=== PATIENT | female | born 1955 | race Caucasian/White ===

== ENCOUNTER 2021-02-23 05:06 | Observation (INO) | payer BC ==
[2021-02-23] MEDS ORDERED: SODIUM CHLORIDE 0.9% 1000 ML INFUS.BAG IV ONE (05:39)
[2021-02-23] MEDS ORDERED: ACETAMINOPHEN 1000 MG/100 ML VIAL IVPB ONE (05:39)
[2021-02-23] MEDS ORDERED: FAMOTIDINE 20 MG/50 ML IVPB 20 MG/50 ML MG IVPB ONE ×2 (05:39→05:48)
[2021-02-23] MEDS ORDERED: ONDANSETRON 4 MG/2 ML VIAL IVPUSH ONE (05:39)
[2021-02-23] MEDS ORDERED: ACETAMINOPHEN INJECTION 100 ML IVPB ONE ×2 (05:48→12:06)
[2021-02-23] MEDS ORDERED: ONDANSETRON 4 MG/2 ML VIAL ONE (05:48)
[2021-02-23 06:27] LABS: BASO % 0.4 % (0-2.0); EOS % 3.3 % (0-4.5); HEMATOCRIT 28.4 % (32.4-45.2); HEMOGLOBIN 9.2 GM/dL (10.7-15.3); LYMPH % 16.8 % (8-40); MCH 22.2 pg (25.7-33.7); MCHC 32.3 g/dl (32.0-36.0); MEAN CELL VOLUME 68.6 fl (80-96); MEAN PLT VOLUME 7.6 fl (7.5-11.1); MONO % 6.1 % (3.8-10.2); NEUT % 73.4 % (42.8-82.8); PLATELET COUNT 387 10^3/uL (134-434); RBC 4.13 M/mm3 (3.60-5.2); RDW 16.9 % (11.6-15.6); WHITE BLOOD COUNT 5.6 K/mm3 (4.0-10.0)
[2021-02-23 06:42] LABS: INR 0.97 (0.83-1.09); PROTHROMBIN TIME (PATIENT) 11.4 SEC (9.7-13.0)
[2021-02-23 06:47] LABS: CHLORIDE 91 mmol/L (98-107); SODIUM 127 mmol/L (136-145)
[2021-02-23 06:49] LABS: CALCIUM 8.8 mg/dL (8.5-10.1)
[2021-02-23 06:50] LABS: ALBUMIN 3.5 g/dl (3.4-5.0); ANION GAP 8 MMOL/L (8-16); BLOOD UREA NITROGEN 9.1 mg/dL (7-18); CO2 27 mmol/L (21-32); GLUCOSE,RANDOM 96 mg/dL (74-106); LIPASE 80 U/L (73-393)
[2021-02-23 06:52] LABS: SGOT/AST 30 U/L (15-37); SGPT/ALT 30 U/L (13-61)
[2021-02-23 06:53] LABS: CREATININE 0.6 mg/dL (0.55-1.3)
[2021-02-23 06:54] LABS: BILIRUBIN,TOTAL 0.3 mg/dL (0.2-1); TOT PROT 7.1 g/dl (6.4-8.2)
[2021-02-23 06:55] LABS: ALK PHOS 114 U/L (45-117)
[2021-02-23] MEDS ORDERED: LACTATED RINGERS SOLUTION 1000 ML INFUS.BAG IV ONE ×2 (07:00→09:33)
[2021-02-23] MEDS ORDERED: morphine CARPU-JECT 4 MG/1 ML DISP.SYRIN IVPUSH ONE (08:24)
[2021-02-23 08:27] LABS: EPI CELLS 5 /uL (0-25.1); HYALINE CASTS 0 /uL (0-3.1); PH,URINE 7.5 (5.0-8.0); URINE APPEARANCE CLEAR; URINE BACTERIA 6303 /uL (0-1359); URINE BILIRUBIN NEGATIVE (NEGATIVE); URINE COLOR YELLOW; URINE GLUCOSE (UA) NEGATIVE (NEGATIVE); URINE KETONE NEGATIVE (NEGATIVE); URINE LEUK ESTERASE TRACE (NEGATIVE); URINE NITRITE NEGATIVE (NEGATIVE); URINE PROTEIN NEGATIVE (NEGATIVE); URINE RBC 1 /uL (0-23.9); URINE WBC 21 /uL (0-25.8)
[2021-02-23] MEDS ORDERED: morphine SULFATE 4 MG/ML VIAL ONE (08:27)
[2021-02-23] MEDS ORDERED: ENOXAPARIN NA (PORCINE) 40 MG/0.4 ML DISP.SYRIN SQ ONE (10:33)
[2021-02-23] MEDS: LACTATED RINGERS SOLUTION 1,000 ML IV SCH ×2 (10:34→23:57)
[2021-02-23] MEDS: ENOXAPARIN NA (PORCINE) 40 MG/0.4 ML DISP.SYRIN SQ SCH (10:34)
[2021-02-23] MEDS: ACETAMINOPHEN 1000 MG/100 ML VIAL IVPB PRN ×2 (12:15→22:11)
[2021-02-23 13:04] VITALS: BMI 33.4
[2021-02-23] MEDS ORDERED: LORazepam 2 MG/ML SDV VIAL IVPUSH ONE (18:23)
[2021-02-23] MEDS ORDERED: traMADol HCL 50 MG TABLET PO ONE (18:37)
[2021-02-23] MEDS ORDERED: ZOLPIDEM TARTRATE 5 MG TABLET PO PRN (18:41)
[2021-02-23] MEDS: LORazepam 0.5 MG TABLET PO ONE ×2 (18:56→20:55)
[2021-02-23] MEDS ORDERED: ACETAMINOPHEN 500 MG TABLET (FP) PO ONE (23:42)
[2021-02-24] MEDS ORDERED: MELATONIN 5 MG TABLETS PO ONE (00:42)
[2021-02-24] MEDS: ACETAMINOPHEN 1000 MG/100 ML VIAL IVPB PRN (06:34)
[2021-02-24 08:53] LABS: BASO % 1.2 % (0-2.0); EOS % 5.8 % (0-4.5); HEMATOCRIT 26.4 % (32.4-45.2); HEMOGLOBIN 8.6 GM/dL (10.7-15.3); LYMPH % 39.1 % (8-40); MCH 22.6 pg (25.7-33.7); MCHC 32.5 g/dl (32.0-36.0); MEAN CELL VOLUME 69.5 fl (80-96); MEAN PLT VOLUME 7.8 fl (7.5-11.1); MONO % 8.2 % (3.8-10.2); NEUT % 45.7 % (42.8-82.8); PLATELET COUNT 397 10^3/uL (134-434); RDW 16.6 % (11.6-15.6); WHITE BLOOD COUNT 3.6 K/mm3 (4.0-10.0)
[2021-02-24 09:29] LABS: CALCIUM 8.9 mg/dL (8.5-10.1)
[2021-02-24 09:30] LABS: ALBUMIN 3.1 g/dl (3.4-5.0); BLOOD UREA NITROGEN 5.1 mg/dL (7-18); MAGNESIUM 1.8 mg/dL (1.8-2.4)
[2021-02-24 09:32] LABS: CREATININE 0.6 mg/dL (0.55-1.3)
[2021-02-24 09:33] LABS: PHOSPHOROUS 4.4 mg/dL (2.5-4.9)
[2021-02-24 09:34] LABS: BILIRUBIN,TOTAL 0.4 mg/dL (0.2-1); TOT PROT 6.4 g/dl (6.4-8.2)
[2021-02-24] MEDS: LACTATED RINGERS SOLUTION 1,000 ML IV SCH (12:18)
[2021-02-24] MEDS: ENOXAPARIN NA (PORCINE) 40 MG/0.4 ML DISP.SYRIN SQ SCH (12:18)
[2021-02-24] MEDS ORDERED: ACETAMINOPHEN 325 MG TABLET (FP) PO PRN (12:21)
[2021-02-24] MEDS ORDERED: PREGABALIN 75 MG CAPSULE PO SCH (15:01)
[2021-02-24 15:09] VITALS: TEMP 97.8
[2021-02-24] MEDS ORDERED: LOSARTAN POTASSIUM 50 MG TABLET PO SCH (18:00)
[2021-02-24 18:36] VITALS: BP 168/94; PULSE 73
== END 2021-02-24 19:29 | disposition home or self-care (01) ==
LOC: JER 05:06 → JERBED 08:59 → UNDOADMOB 08:59 → INTOOBSV 08:59 → J8W 12:40 → JERBED 12:40 → J8W 02-24 13:58
PROVIDERS: ADMIT Internal Medicine; ATTEND Nurse Practitioner Family
PROC: 3E033NZ Introduction of Analgesics, Hypnotics, Sedatives into Peripheral Vein, Percutaneous Approach (ICD-10-PCS; principal; 2021-02-24)
PROC: 3E023GC Introduction of Other Therapeutic Substance into Muscle, Percutaneous Approach (ICD-10-PCS; 2021-02-24)
PROC: 3E033GC Introduction of Other Therapeutic Substance into Peripheral Vein, Percutaneous Approach (ICD-10-PCS; 2021-02-24)
PROC: 3E0337Z Introduction of Electrolytic and Water Balance Substance into Peripheral Vein, Percutaneous Approach (ICD-10-PCS; 2021-02-24)
PROC: 3E033NZ Introduction of Analgesics, Hypnotics, Sedatives into Peripheral Vein, Percutaneous Approach (ICD-10-PCS; 2021-02-24)
DX: K56.609 Unspecified intestinal obstruction, unspecified as to partial versus complete obstruction (principal); E87.1 Hypo-osmolality and hyponatremia; I10 Essential (primary) hypertension; E66.9 Obesity, unspecified; Z68.33 Body mass index [BMI] 33.0-33.9, adult; Z88.8 Allergy status to other drugs, medicaments and biological substances; D69.49 Other primary thrombocytopenia; K56.600 Partial intestinal obstruction, unspecified as to cause; F41.9 Anxiety disorder, unspecified; Z98.84 Bariatric surgery status; Z90.49 Acquired absence of other specified parts of digestive tract; D64.9 Anemia, unspecified
CPT/HCPCS: 36415; 71045-TC-FY; 74177-TC; 80053; 81003; 82436; 83690; 83735; 83930; 83935; 84100; 84133; 84300; 84484; 85025; 85610; 85730; 86850; 86900; 86901; 87086; 87186; 93005; 93010; 99285-25; C9803; G0378; J0131; U0003; U0005

== ENCOUNTER 2021-03-30 11:09 | Emergency (ER) | payer BC ==
[2021-03-30 11:34] VITALS: BMI 32.4
[2021-03-30 12:28] VITALS: BP 148/78; PULSE 84; TEMP 97
[2021-03-30] MEDS ORDERED: ACETAMINOPHEN 500 MG TABLET (FP) PO ONE (13:06)
[2021-03-30] MEDS ORDERED: ACETAMINOPHEN 500 MG TABLET (FP) ONE (13:13)
[2021-03-30] MEDS ORDERED: LORazepam 0.5 MG TABLET PO ONE (13:21)
[2021-03-30] MEDS ORDERED: LORazepam 0.5 MG TABLET ONE (13:40)
== END 2021-03-30 14:49 | disposition home or self-care (01) ==
LOC: JER 11:09
DX: M54.50 Low back pain, unspecified (principal); F41.9 Anxiety disorder, unspecified
CPT/HCPCS: 99283-25

== ENCOUNTER 2021-04-14 22:58 | Inpatient (IN) | payer BC ==
[2021-04-15] MEDS ORDERED: diazePAM CARPU-JECT 10 MG/2 ML DISP.SYRIN IVPUSH ONE ×2 (00:05→01:38)
[2021-04-15] MEDS ORDERED: diazePAM CARPU-JECT 10 MG/2 ML DISP.SYRIN ONE (00:27)
[2021-04-15 01:07] LABS: BASO % 0.3 % (0-2.0); EOS % 0.7 % (0-4.5); HEMATOCRIT 27.5 % (32.4-45.2); HEMOGLOBIN 8.7 GM/dL (10.7-15.3); LYMPH % 11.1 % (8-40); MCH 21.1 pg (25.7-33.7); MCHC 31.8 g/dl (32.0-36.0); MEAN CELL VOLUME 66.4 fl (80-96); MEAN PLT VOLUME 7.5 fl (7.5-11.1); MONO % 9.5 % (3.8-10.2); NEUT % 78.4 % (42.8-82.8); PLATELET COUNT 351 10^3/uL (134-434); RBC 4.14 M/mm3 (3.60-5.2); RDW 17.7 % (11.6-15.6); WHITE BLOOD COUNT 4.4 K/mm3 (4.0-10.0)
[2021-04-15 01:24] LABS: CHLORIDE 101 mmol/L (98-107); SODIUM 138 mmol/L (136-145)
[2021-04-15 01:27] LABS: ALBUMIN 3.6 g/dl (3.4-5.0); ANION GAP 6 MMOL/L (8-16); CO2 30 mmol/L (21-32); GLUCOSE,RANDOM 94 mg/dL (74-106)
[2021-04-15 01:30] LABS: CREATININE 0.6 mg/dL (0.55-1.3); SGOT/AST 42 U/L (15-37); SGPT/ALT 32 U/L (13-61)
[2021-04-15 01:32] LABS: BILIRUBIN,TOTAL 0.3 mg/dL (0.2-1)
[2021-04-15 01:33] LABS: ALK PHOS 116 U/L (45-117)
[2021-04-15 02:12] LABS: METHADONE, UR NEGATIVE (NEGATIVE); OPIATES, URI NEGATIVE (NEGATIVE); PHENCYCLIDINE,URINE NEGATIVE (NEGATIVE); URINE BARBITURATES NEGATIVE (NEGATIVE)
[2021-04-15 02:13] LABS: URINE AMPHETAMINES NEGATIVE (NEGATIVE)
[2021-04-15 02:22] LABS: COCAINE, UR NEGATIVE (NEGATIVE); URINE BENZODIAZEPINES POSITIVE (NEGATIVE)
[2021-04-15 03:24] LABS: ANISOCYTOSIS 3+; MACROCYTOSIS 0; OVALOCYTE 1+; PLATELET ESTIMATE NORMAL; TEAR DROP CELLS 1+
[2021-04-15] MEDS ORDERED: HALOPERIDOL LACTATE 5 MG/ML IM ONE (03:25)
[2021-04-15] MEDS ORDERED: LORazepam 2 MG/ML SDV VIAL ONE (03:38)
[2021-04-15] MEDS ORDERED: LORazepam 2 MG/ML SDV VIAL IM ONE (03:38)
[2021-04-15] MEDS ORDERED: HALOPERIDOL LACTATE 5 MG/ML ONE (03:38)
[2021-04-15] MEDS: LORazepam 2 MG/ML SDV VIAL IVPUSH ONE ×2 (03:45)
[2021-04-15] MEDS ORDERED: ACETAMINOPHEN 1000 MG/100 ML VIAL IVPB ONE (04:21)
[2021-04-15] MEDS ORDERED: MIDAZOLAM HCL 2 MG/2 ML SINGLE DOSE VIAL IVPUSH ONE (04:23)
[2021-04-15 07:28] LABS: EPI CELLS 6 /uL (0-25.1); HYALINE CASTS 1 /uL (0-3.1); PH,URINE 6.5 (5.0-8.0); URINE APPEARANCE CLEAR; URINE BACTERIA >9,000 /uL (0-1359); URINE BILIRUBIN NEGATIVE (NEGATIVE); URINE COLOR YELLOW; URINE GLUCOSE (UA) NEGATIVE (NEGATIVE); URINE KETONE 2+ (NEGATIVE); URINE LEUK ESTERASE TRACE (NEGATIVE); URINE NITRITE POSITIVE (NEGATIVE); URINE PROTEIN NEGATIVE (NEGATIVE); URINE RBC 27 /uL (0-23.9); URINE WBC 12 /uL (0-25.8)
[2021-04-15 07:31] LABS: IRON SERUM 21 ug/dL (50-175); TOTAL IRON BINDING CAPACITY 426 ug/dL (250-450)
[2021-04-15 08:38] LABS: URINE CRYSTALS NON SEEN /hpf
[2021-04-15] MEDS: ENOXAPARIN NA (PORCINE) 40 MG/0.4 ML DISP.SYRIN SQ SCH (09:33)
[2021-04-15 09:59] LABS: BASO % 0.6 % (0-2.0); EOS % 1.1 % (0-4.5); HEMOGLOBIN 8.7 GM/dL (10.7-15.3); LYMPH % 19.9 % (8-40); MCH 21.3 pg (25.7-33.7); MCHC 32.1 g/dl (32.0-36.0); MEAN CELL VOLUME 66.4 fl (80-96); MEAN PLT VOLUME 7.8 fl (7.5-11.1); MONO % 10.3 % (3.8-10.2); NEUT % 68.1 % (42.8-82.8); PLATELET COUNT 318 10^3/uL (134-434); RBC 4.06 M/mm3 (3.60-5.2)
[2021-04-15 10:08] LABS: INR 1.19 (0.83-1.09); PROTHROMBIN TIME (PATIENT) 13.3 SEC (9.7-13.0)
[2021-04-15 10:22] LABS: BLOOD UREA NITROGEN 4.9 mg/dL (7-18)
[2021-04-15 10:23] LABS: CALCIUM 8.5 mg/dL (8.5-10.1); MAGNESIUM 2.2 mg/dL (1.8-2.4)
[2021-04-15 10:25] LABS: CREATININE 0.6 mg/dL (0.55-1.3)
[2021-04-15] MEDS: ACETAMINOPHEN 1000 MG/100 ML VIAL IVPB PRN (11:21)
[2021-04-15] MEDS ORDERED: traMADol HCL 50 MG TABLET PO ONE ×2 (12:16→19:06)
[2021-04-15 16:31] VITALS: BMI 32.1
[2021-04-15] MEDS: traZODone HCL 50 MG TABLET (FP) PO SCH (21:04)
[2021-04-16] MEDS: ACETAMINOPHEN 1000 MG/100 ML VIAL IVPB PRN (01:01)
[2021-04-16] MEDS: FERROUS SO4 325 MG TABLET (FP) PO SCH (08:57)
[2021-04-16 09:03] LABS: BASO % 0.3 % (0-2.0); EOS % 0.5 % (0-4.5); HEMATOCRIT 27.8 % (32.4-45.2); LYMPH % 29.2 % (8-40); MCH 21.6 pg (25.7-33.7); MCHC 32.2 g/dl (32.0-36.0); MEAN PLT VOLUME 8.2 fl (7.5-11.1); MONO % 10.6 % (3.8-10.2); NEUT % 59.4 % (42.8-82.8); PLATELET COUNT 322 10^3/uL (134-434); RBC 4.15 M/mm3 (3.60-5.2); RDW 18.1 % (11.6-15.6); WHITE BLOOD COUNT 3.6 K/mm3 (4.0-10.0)
[2021-04-16 09:15] LABS: CALCIUM 8.3 mg/dL (8.5-10.1)
[2021-04-16 09:16] LABS: ALBUMIN 3.1 g/dl (3.4-5.0); BLOOD UREA NITROGEN 7.1 mg/dL (7-18); MAGNESIUM 2.3 mg/dL (1.8-2.4)
[2021-04-16 09:19] LABS: CREATININE 0.5 mg/dL (0.55-1.3)
[2021-04-16 09:20] LABS: BILIRUBIN,TOTAL 0.3 mg/dL (0.2-1); TOT PROT 6.4 g/dl (6.4-8.2)
[2021-04-16] MEDS: ENOXAPARIN NA (PORCINE) 40 MG/0.4 ML DISP.SYRIN SQ SCH (10:14)
[2021-04-16] MEDS: traZODone HCL 50 MG TABLET (FP) PO SCH (21:10)
[2021-04-17] MEDS: FERROUS SO4 325 MG TABLET (FP) PO SCH (08:13)
[2021-04-17] MEDS: ENOXAPARIN NA (PORCINE) 40 MG/0.4 ML DISP.SYRIN SQ SCH (09:24)
[2021-04-17] MEDS ORDERED: CEFTRIAXONE 1 GM in DEXTROSE 5%-WATER - 50 ML IVPB SCH (13:30)
[2021-04-17] MEDS ORDERED: cefTRIAXone SODIUM 1 GM VIAL ONE (13:42)
[2021-04-17] MEDS ORDERED: DEXTROSE 5%-WATER - 50 ML IVPB ONE (13:43)
[2021-04-17 18:14] VITALS: BP 138/81; PULSE 76; TEMP 97.1
[2021-04-17] MEDS: traZODone HCL 50 MG TABLET (FP) PO SCH (22:47)
[2021-04-18] MEDS ORDERED: MULTIVITAMINS (DAILY MVI) TABLET (FP) PO SCH (10:00)
== END 2021-04-17 22:45 | disposition left against medical advice (07) | DRG 880 ==
LOC: JER 22:58 → JERBED 04-15 04:24 → J8W 04-15 11:10
PROVIDERS: ADMIT Internal Medicine; ATTEND Internal Medicine
DX: F41.0 Panic disorder [episodic paroxysmal anxiety] (principal); U07.1 COVID-19; N39.0 Urinary tract infection, site not specified; E46 Unspecified protein-calorie malnutrition; F41.9 Anxiety disorder, unspecified; M54.50 Low back pain, unspecified; G47.00 Insomnia, unspecified; R62.7 Adult failure to thrive; I10 Essential (primary) hypertension; E66.01 Morbid (severe) obesity due to excess calories; F45.9 Somatoform disorder, unspecified; D50.9 Iron deficiency anemia, unspecified; Z68.32 Body mass index [BMI] 32.0-32.9, adult; M79.661 Pain in right lower leg
CPT/HCPCS: 36415; 71045-TC-FY; 74177-TC; 80048; 80053; 80307; 81003; 82553; 82728; 82962; 83540; 83550; 83690; 83735; 84100; 84443; 84484; 85025; 85610; 86140; 87086; 87186; 93005; 93010; 93970-TC; 99285-25; C9803; J0131; Q9967; U0003; U0005

== ENCOUNTER 2022-08-08 12:36 | Emergency (ER) | payer BC ==
[2022-08-08 12:46] VITALS: TEMP 97.5; BMI 34.5
[2022-08-08 13:54] VITALS: BP 177/96; PULSE 78; RESP 16
== END 2022-08-08 15:08 | disposition home or self-care (01) ==
LOC: JER 12:36
DX: F41.0 Panic disorder [episodic paroxysmal anxiety] (principal); M54.41 Lumbago with sciatica, right side; M54.42 Lumbago with sciatica, left side; G89.29 Other chronic pain; G62.9 Polyneuropathy, unspecified
CPT/HCPCS: 99282-25

== ENCOUNTER 2022-08-08 21:01 | Emergency (ER) | payer BC, OTHER ==
[2022-08-08 21:06] VITALS: RESP 18; TEMP 98.1; BMI 34.5
[2022-08-08] MEDS ORDERED: ACETAMINOPHEN 1000 MG/100 ML BAG IVPB ONE (23:09)
[2022-08-08] MEDS ORDERED: METOCLOPRAMIDE HCL INJECTION 10 MG/2 ML VIAL IVPB ONE (23:09)
[2022-08-08] MEDS ORDERED: KETOROLAC TROMETHAMINE 15 MG/ML VIAL IVPUSH ONE (23:09)
[2022-08-08] MEDS ORDERED: METOCLOPRAMIDE HCL INJECTION 10 MG/2 ML VIAL ONE (23:31)
[2022-08-08] MEDS ORDERED: ACETAMINOPHEN INJECTION 100 ML IVPB ONE (23:31)
[2022-08-08] MEDS ORDERED: KETOROLAC TROMETHAMINE 15 MG/ML VIAL ONE (23:31)
[2022-08-09 01:18] VITALS: BP 148/71; PULSE 84
== END 2022-08-09 01:28 | disposition home or self-care (01) ==
LOC: JER 21:01
PROC: 3E0333Z Introduction of Anti-inflammatory into Peripheral Vein, Percutaneous Approach (ICD-10-PCS; principal; 2022-08-08)
PROC: 3E033GC Introduction of Other Therapeutic Substance into Peripheral Vein, Percutaneous Approach (ICD-10-PCS; 2022-08-08)
PROC: 3E033GC Introduction of Other Therapeutic Substance into Peripheral Vein, Percutaneous Approach (ICD-10-PCS; 2022-08-08)
PROC: 3E033GC Introduction of Other Therapeutic Substance into Peripheral Vein, Percutaneous Approach (ICD-10-PCS; 2022-08-08)
DX: R41.9 Unspecified symptoms and signs involving cognitive functions and awareness (principal); M54.2 Cervicalgia; I10 Essential (primary) hypertension; R51.9 Headache, unspecified; G89.29 Other chronic pain
CPT/HCPCS: 99284-25

== ENCOUNTER 2023-07-13 01:09 | Inpatient (IN) | payer BC, OTHER ==
[2023-07-13] MEDS ORDERED: ACETAMINOPHEN INJECTION 100 ML IVPB ONE (02:15)
[2023-07-13] MEDS ORDERED: ONDANSETRON 4 MG/2 ML VIAL ONE (02:15)
[2023-07-13] MEDS: ACETAMINOPHEN 1000 MG/100 ML BAG IVPB ONE (02:41)
[2023-07-13] MEDS: ONDANSETRON 4 MG/2 ML VIAL IVPUSH ONE (02:42)
[2023-07-13 02:49] LABS: BASO % 0.2 % (0-2.0); EOS % 6.5 % (0-4.5); HEMATOCRIT 35.4 % (32.4-45.2); HEMOGLOBIN 12.4 GM/dL (10.7-15.3); MCHC 34.9 g/dl (32.0-36.0); MEAN CELL VOLUME 80.2 fl (80-96); MONO % 7.4 % (3.8-10.2); NEUT % 71.9 % (42.8-82.8); PLATELET COUNT 320 10^3/uL (134-434); RBC 4.42 M/mm3 (3.60-5.2); RDW 14.2 % (11.6-15.6); WHITE BLOOD COUNT 7.1 K/mm3 (4.0-10.0)
[2023-07-13] MEDS ORDERED: FAMOTIDINE 20 MG/50 ML IVPB 20 MG/50 ML MG IVPB ONE (03:11)
[2023-07-13] MEDS ORDERED: IOHEXOL (OMNIPAQUE PO) 12 MG/ML - 500 ML BOTTLE PO ONE (03:11)
[2023-07-13] MEDS ORDERED: MAG HYDROX/AL HYDROX/SIMETH 30 ML UNIT-DOSE CUP ONE (03:11)
[2023-07-13 03:19] LABS: CHLORIDE 75 mmol/L (98-107); POTASSIUM 3.2 mmol/L (3.5-5.1)
[2023-07-13 03:22] LABS: ALBUMIN 4.1 g/dl (3.4-5.0); BLOOD UREA NITROGEN 11.6 mg/dL (7-18); CALCIUM 8.7 mg/dL (8.5-10.1); CO2 23 mmol/L (21-32); GLUCOSE,RANDOM 114 mg/dL (74-106); MAGNESIUM 1.8 mg/dL (1.8-2.4)
[2023-07-13 03:25] LABS: CREATININE 0.7 mg/dL (0.55-1.3); SGOT/AST 34 U/L (15-37); SGPT/ALT 37 U/L (13-61)
[2023-07-13 03:26] LABS: BILIRUBIN,TOTAL 0.9 mg/dL (0.2-1)
[2023-07-13 03:27] LABS: TOT PROT 7.3 g/dl (6.4-8.2)
[2023-07-13 03:28] LABS: ALK PHOS 112 U/L (45-117)
[2023-07-13 03:29] LABS: ANION GAP 16 mmol/L (4-13); SODIUM 113 mmol/L (136-145)
[2023-07-13] MEDS: FAMOTIDINE 20 MG/50 ML IVPB 20 MG/50 ML MG IVPB ONE (03:33)
[2023-07-13] MEDS: MAG HYDROX/AL HYDROX/SIMETH 30 ML UNIT-DOSE CUP PO ONE (03:33)
[2023-07-13] MEDS ORDERED: METOCLOPRAMIDE HCL INJECTION 10 MG/2 ML VIAL ONE (03:36)
[2023-07-13] MEDS ORDERED: KCL 10 MEQ IVPB 20 MEQ/200 ML INFUS.BAG IVPB ONE (03:41)
[2023-07-13] MEDS: SODIUM CHLORIDE 0.9% 500 ML INFUS.BAG IV ONE (04:05)
[2023-07-13] MEDS: METOCLOPRAMIDE HCL INJECTION 10 MG/2 ML VIAL IVPB ONE (04:05)
[2023-07-13] MEDS: KCL 10 MEQ IVPB 10 MEQ/100 ML INFUS.BAG IVPB SCH (04:05)
[2023-07-13 05:54] LABS: EPI CELLS 8 /uL (0-25.1); HYALINE CASTS 0 /uL (0-3.1); PH,URINE 6.5 (5.0-8.0); URINE APPEARANCE CLEAR; URINE BACTERIA 6586 /uL (0-1359); URINE BILIRUBIN NEGATIVE (NEGATIVE); URINE COLOR YELLOW; URINE GLUCOSE (UA) NEGATIVE (NEGATIVE); URINE KETONE 1+ (NEGATIVE); URINE LEUK ESTERASE TRACE (NEGATIVE); URINE NITRITE POSITIVE (NEGATIVE); URINE PROTEIN NEGATIVE (NEGATIVE); URINE RBC 15 /uL (0-23.9); URINE WBC 35 /uL (0-25.8)
[2023-07-13 07:49] LABS: CHLORIDE 78 mmol/L (98-107); POTASSIUM 3.4 mmol/L (3.5-5.1)
[2023-07-13 07:51] LABS: BLOOD UREA NITROGEN 8.4 mg/dL (7-18); CALCIUM 8.6 mg/dL (8.5-10.1); CO2 21 mmol/L (21-32); GLUCOSE,RANDOM 126 mg/dL (74-106)
[2023-07-13 07:54] LABS: CREATININE 0.6 mg/dL (0.55-1.3)
[2023-07-13 07:59] LABS: ANION GAP 14 mmol/L (4-13); SODIUM 113 mmol/L (136-145)
[2023-07-13] MEDS: CEFTRIAXONE 1,000 MG in DEXTROSE 5%-WATER - 50 ML IVPB ONE (08:07)
[2023-07-13] MEDS ORDERED: KCL 10 MEQ IVPB 10 MEQ/100 ML INFUS.BAG IVPB ONE (08:12)
[2023-07-13] MEDS ORDERED: CEFTRIAXONE 1 GM/50 ML BAG ONE (08:12)
[2023-07-13] MEDS: POTASSIUM CHLORIDE TABS 20 MEQ TABLET.ER (FP) PO ONE (08:50)
[2023-07-13] MEDS ORDERED: POTASSIUM CHLORIDE TABS 20 MEQ TABLET.ER (FP) PO ONE (08:53)
[2023-07-13] MEDS: SODIUM CHLORIDE 1,000 ML IV SCH (09:17)
[2023-07-13] MEDS ORDERED: TRIMETHOBENZAMIDE HCL 200MG/2ML INJ IM PRN (10:18)
[2023-07-13] MEDS ORDERED: ACETAMINOPHEN 325 MG TABLET (FP) ONE (10:32)
[2023-07-13] MEDS: ACETAMINOPHEN 325 MG TABLET (FP) PO PRN (10:41)
[2023-07-13] MEDS: ENOXAPARIN NA (PORCINE) 40 MG/0.4 ML DISP.SYRIN SQ SCH (10:43)
[2023-07-13] MEDS ORDERED: KETOROLAC TROMETHAMINE 15 MG/ML VIAL ONE (11:48)
[2023-07-13] MEDS: KETOROLAC TROMETHAMINE 15 MG/ML VIAL IVPUSH PRN (11:50)
[2023-07-13] MEDS: PREGABALIN 100 MG CAPSULE PO SCH (12:06)
[2023-07-13] MEDS: DULoxetine HCL 30 MG CAPSULE.DR PO SCH (12:06)
[2023-07-13] MEDS ORDERED: PREGABALIN 100 MG CAPSULE ONE (12:09)
[2023-07-13] MEDS: LOSARTAN 50MG/HCTZ 12.5MG 1 TAB PO SCH (12:14)
[2023-07-13 16:52] LABS: SODIUM 116 mmol/L (136-145)
[2023-07-13 23:38] LABS: CHLORIDE 83 mmol/L (98-107); POTASSIUM 3.8 mmol/L (3.5-5.1)
[2023-07-13 23:39] LABS: CALCIUM 8.8 mg/dL (8.5-10.1); CO2 23 mmol/L (21-32); GLUCOSE,RANDOM 99 mg/dL (74-106)
[2023-07-13 23:40] LABS: BLOOD UREA NITROGEN 5.9 mg/dL (7-18)
[2023-07-13 23:43] LABS: CREATININE 0.5 mg/dL (0.55-1.3)
[2023-07-13 23:52] LABS: ANION GAP 13 mmol/L (4-13); SODIUM 119 mmol/L (136-145)
[2023-07-14 08:07] LABS: HEMATOCRIT 33.8 % (32.4-45.2); HEMOGLOBIN 11.7 GM/dL (10.7-15.3); MCHC 34.5 g/dl (32.0-36.0); MEAN PLT VOLUME 7.3 fl (7.5-11.1); PLATELET COUNT 294 10^3/uL (134-434); RBC 4.17 M/mm3 (3.60-5.2); RDW 14.4 % (11.6-15.6); WHITE BLOOD COUNT 5.1 K/mm3 (4.0-10.0)
[2023-07-14 08:12] LABS: CHLORIDE 83 mmol/L (98-107); POTASSIUM 3.8 mmol/L (3.5-5.1)
[2023-07-14 08:15] LABS: CALCIUM 8.4 mg/dL (8.5-10.1)
[2023-07-14 08:16] LABS: ALBUMIN 3.8 g/dl (3.4-5.0); BLOOD UREA NITROGEN 6.6 mg/dL (7-18); CO2 25 mmol/L (21-32); GLUCOSE,RANDOM 88 mg/dL (74-106); MAGNESIUM 1.9 mg/dL (1.8-2.4)
[2023-07-14 08:19] LABS: CREATININE 0.5 mg/dL (0.55-1.3); PHOSPHOROUS 3.2 mg/dL (2.5-4.9); SGOT/AST 41 U/L (15-37); SGPT/ALT 37 U/L (13-61)
[2023-07-14 08:22] LABS: ALK PHOS 105 U/L (45-117); BILIRUBIN,TOTAL 0.7 mg/dL (0.2-1); TOT PROT 6.5 g/dl (6.4-8.2)
[2023-07-14 08:28] LABS: ANION GAP 10 mmol/L (4-13); SODIUM 118 mmol/L (136-145)
[2023-07-14] MEDS: SODIUM CHLORIDE 1,000 ML IV SCH (18:15)
[2023-07-14] MEDS: MELATONIN 5 MG TABLETS PO PRN (21:59)
[2023-07-15] MEDS: CEFTRIAXONE 1 GM in DEXTROSE 5%-WATER - 50 ML IVPB SCH (10:31)
[2023-07-15 12:18] LABS: BASO % 0.5 % (0-2.0); EOS % 3.9 % (0-4.5); HEMATOCRIT 38.4 % (32.4-45.2); HEMOGLOBIN 12.9 GM/dL (10.7-15.3); LYMPH % 26.7 % (8-40); MCH 27.6 pg (25.7-33.7); MCHC 33.5 g/dl (32.0-36.0); MEAN CELL VOLUME 82.6 fl (80-96); MONO % 6.7 % (3.8-10.2); NEUT % 62.2 % (42.8-82.8); PLATELET COUNT 332 10^3/uL (134-434); RBC 4.66 M/mm3 (3.60-5.2); RDW 14.7 % (11.6-15.6); WHITE BLOOD COUNT 5.2 K/mm3 (4.0-10.0)
[2023-07-15 12:25] LABS: CHLORIDE 86 mmol/L (98-107); POTASSIUM 3.3 mmol/L (3.5-5.1); SODIUM 125 mmol/L (136-145)
[2023-07-15 12:27] LABS: ANION GAP 13 mmol/L (4-13); CALCIUM 9.1 mg/dL (8.5-10.1); CO2 26 mmol/L (21-32); GLUCOSE,RANDOM 86 mg/dL (74-106)
[2023-07-15 12:30] LABS: CREATININE 0.5 mg/dL (0.55-1.3); SGOT/AST 34 U/L (15-37); SGPT/ALT 39 U/L (13-61)
[2023-07-15 12:32] LABS: BILIRUBIN,TOTAL 0.7 mg/dL (0.2-1); TOT PROT 7.5 g/dl (6.4-8.2)
[2023-07-15 12:33] LABS: ALK PHOS 113 U/L (45-117); BLOOD UREA NITROGEN 2.8 mg/dL (7-18)
[2023-07-15] MEDS: POTASSIUM CHLORIDE ORAL LIQUID 20 MEQ/15 ML PO ONE (14:07)
[2023-07-15] MEDS: DULoxetine HCL 20 MG CAPSULE.DR PO SCH (19:23)
[2023-07-16 00:44] LABS: POTASSIUM 4.8 mmol/L (3.5-5.1)
[2023-07-16 00:45] LABS: CALCIUM 9.3 mg/dL (8.5-10.1)
[2023-07-16 00:46] LABS: BLOOD UREA NITROGEN 3.7 mg/dL (7-18)
[2023-07-16 00:49] LABS: CREATININE 0.5 mg/dL (0.55-1.3)
[2023-07-16] MEDS: ALPRAZolam 0.25 MG TABLET PO ONE (05:10)
[2023-07-16 08:34] LABS: BASO % 1.2 % (0-2.0); EOS % 2.1 % (0-4.5); HEMATOCRIT 36.2 % (32.4-45.2); HEMOGLOBIN 12.4 GM/dL (10.7-15.3); LYMPH % 21.4 % (8-40); MCH 28.2 pg (25.7-33.7); MCHC 34.1 g/dl (32.0-36.0); MEAN CELL VOLUME 82.7 fl (80-96); MEAN PLT VOLUME 7.5 fl (7.5-11.1); MONO % 8.4 % (3.8-10.2); NEUT % 66.9 % (42.8-82.8); PLATELET COUNT 311 10^3/uL (134-434); RBC 4.38 M/mm3 (3.60-5.2); WHITE BLOOD COUNT 5.6 K/mm3 (4.0-10.0)
[2023-07-16 08:43] LABS: CHLORIDE 93 mmol/L (98-107); POTASSIUM 3.9 mmol/L (3.5-5.1); SODIUM 131 mmol/L (136-145)
[2023-07-16 08:48] LABS: ALBUMIN 3.8 g/dl (3.4-5.0); ANION GAP 14 mmol/L (4-13); CALCIUM 8.8 mg/dL (8.5-10.1); CO2 24 mmol/L (21-32); GLUCOSE,RANDOM 84 mg/dL (74-106); MAGNESIUM 2.2 mg/dL (1.8-2.4)
[2023-07-16 08:51] LABS: SGOT/AST 30 U/L (15-37); SGPT/ALT 38 U/L (13-61)
[2023-07-16 08:52] LABS: CREATININE 0.4 mg/dL (0.55-1.3)
[2023-07-16 08:53] LABS: BILIRUBIN,TOTAL 0.4 mg/dL (0.2-1)
[2023-07-16 08:54] LABS: ALK PHOS 105 U/L (45-117); BLOOD UREA NITROGEN 2.6 mg/dL (7-18)
[2023-07-16] MEDS: NITROFURANTOIN MACROCRYSTAL 50 MG CAPSULE (FP) PO SCH (10:16)
[2023-07-16] MEDS: SODIUM CHLORIDE 1,000 ML IV SCH (10:16)
[2023-07-16 19:06] LABS: ARTERIAL BLD GAS O2 SATURATION 97.8 % (95-98); ARTERIAL BLOOD GAS BASE EXCESS -7.9 mmol/L (-2-2); ARTERIAL BLOOD GAS pH 7.287 (7.350-7.450)
[2023-07-16 20:05] LABS: BASO % 0.7 % (0-2.0); EOS % 2.4 % (0-4.5); HEMATOCRIT 37.1 % (32.4-45.2); HEMOGLOBIN 12.4 GM/dL (10.7-15.3); LYMPH % 34.4 % (8-40); MCH 28.1 pg (25.7-33.7); MCHC 33.4 g/dl (32.0-36.0); MEAN CELL VOLUME 84.2 fl (80-96); MEAN PLT VOLUME 7.3 fl (7.5-11.1); MONO % 8.4 % (3.8-10.2); NEUT % 54.1 % (42.8-82.8); PLATELET COUNT 353 10^3/uL (134-434); RBC 4.41 M/mm3 (3.60-5.2); WHITE BLOOD COUNT 7.1 K/mm3 (4.0-10.0)
[2023-07-16 20:21] LABS: POTASSIUM 3.6 mmol/L (3.5-5.1)
[2023-07-16 20:23] LABS: ALBUMIN 4.2 g/dl (3.4-5.0); CALCIUM 9.5 mg/dL (8.5-10.1)
[2023-07-16 20:24] LABS: BLOOD UREA NITROGEN 4.6 mg/dL (7-18)
[2023-07-16 20:27] LABS: CREATININE 0.9 mg/dL (0.55-1.3)
[2023-07-16 20:28] LABS: TOT PROT 7.3 g/dl (6.4-8.2)
[2023-07-16 20:33] LABS: BILIRUBIN,TOTAL 0.5 mg/dL (0.2-1)
[2023-07-16 20:34] LABS: LACTIC ACID 9.1 mmol/L (0.4-2.0)
[2023-07-16 20:35] LABS: EPI CELLS >36 /uL (0-25.1); HYALINE CASTS 7 /uL (0-3.1); URINE APPEARANCE CLEAR; URINE BACTERIA 42 /uL (0-1359); URINE BILIRUBIN NEGATIVE (NEGATIVE); URINE COLOR DK YELLOW; URINE GLUCOSE (UA) NEGATIVE (NEGATIVE); URINE KETONE 3+ (NEGATIVE); URINE LEUK ESTERASE TRACE (NEGATIVE); URINE NITRITE NEGATIVE (NEGATIVE); URINE PROTEIN 2+ (NEGATIVE); URINE RBC 911 /uL (0-23.9); URINE WBC 168 /uL (0-25.8)
[2023-07-16] MEDS: SODIUM CHLORIDE 250 ML IV STA (21:36)
[2023-07-16] MEDS: hydrALAZINE HCL 20 MG/ML VIAL IM PRN (21:36)
[2023-07-16] MEDS: MUPIROCIN 2% TOPICAL OINTMENT FOR DECOLONIZATION NS SCH (21:38)
[2023-07-16] MEDS: CHLORHEXIDINE GLUCONATE 4% CLEANSER FOR DECOLONIZATION TP SCH (21:39)
[2023-07-16] MEDS ORDERED: hydrALAZINE HCL 20 MG/ML VIAL IVPUSH PRN (21:53)
[2023-07-16 22:20] LABS: LACTIC ACID 2.7 mmol/L (0.4-2.0)
[2023-07-16] MEDS: levETIRAcetam 500 MG/5 ML INJECTION VIAL IVPB SCH (23:26)
[2023-07-17 07:35] LABS: BASO % 0.5 % (0-2.0); EOS % 2.4 % (0-4.5); HEMATOCRIT 34.3 % (32.4-45.2); HEMOGLOBIN 11.9 GM/dL (10.7-15.3); LYMPH % 22.6 % (8-40); MCH 28.4 pg (25.7-33.7); MCHC 34.6 g/dl (32.0-36.0); MEAN CELL VOLUME 82.1 fl (80-96); MEAN PLT VOLUME 6.6 fl (7.5-11.1); MONO % 7.4 % (3.8-10.2); NEUT % 67.1 % (42.8-82.8); PLATELET COUNT 353 10^3/uL (134-434); RBC 4.18 M/mm3 (3.60-5.2); RDW 15.4 % (11.6-15.6); WHITE BLOOD COUNT 5.4 K/mm3 (4.0-10.0)
[2023-07-17 07:57] LABS: POTASSIUM 3.5 mmol/L (3.5-5.1)
[2023-07-17] MEDS: SODIUM CHLORIDE 1,000 ML IV SCH (08:00)
[2023-07-17 08:04] LABS: CALCIUM 8.9 mg/dL (8.5-10.1)
[2023-07-17 08:05] LABS: ALBUMIN 3.7 g/dl (3.4-5.0); BLOOD UREA NITROGEN 3.3 mg/dL (7-18); CREATININE 0.5 mg/dL (0.55-1.3); MAGNESIUM 2.2 mg/dL (1.8-2.4); PHOSPHOROUS 4.2 mg/dL (2.5-4.9)
[2023-07-17 08:07] LABS: TOT PROT 6.9 g/dl (6.4-8.2)
[2023-07-17 08:11] LABS: BILIRUBIN,TOTAL 0.5 mg/dL (0.2-1)
[2023-07-17] MEDS: LOSARTAN POTASSIUM 50 MG TABLET PO SCH (11:51)
[2023-07-17] MEDS: DULoxetine HCL 20 MG CAPSULE.DR PO SCH (11:51)
[2023-07-17 13:17] LABS: CHLORIDE 93 mmol/L (98-107); POTASSIUM 3.7 mmol/L (3.5-5.1); SODIUM 128 mmol/L (136-145)
[2023-07-17 13:40] LABS: ANION GAP 11 mmol/L (4-13); CO2 25 mmol/L (21-32)
[2023-07-17 13:41] LABS: CALCIUM 9.3 mg/dL (8.5-10.1); GLUCOSE,RANDOM 104 mg/dL (74-106)
[2023-07-17 13:44] LABS: CREATININE 0.5 mg/dL (0.55-1.3)
[2023-07-17 14:07] LABS: BLOOD UREA NITROGEN 2.9 mg/dL (7-18)
[2023-07-17 20:04] LABS: POTASSIUM 3.6 mmol/L (3.5-5.1)
[2023-07-17 20:06] LABS: CALCIUM 9.1 mg/dL (8.5-10.1)
[2023-07-17 20:10] LABS: CREATININE 0.5 mg/dL (0.55-1.3)
[2023-07-18 07:10] LABS: POTASSIUM 3.7 mmol/L (3.5-5.1)
[2023-07-18 07:11] LABS: CALCIUM 9.1 mg/dL (8.5-10.1)
[2023-07-18 07:12] LABS: BLOOD UREA NITROGEN 5.6 mg/dL (7-18); MAGNESIUM 2.1 mg/dL (1.8-2.4)
[2023-07-18 07:15] LABS: CREATININE 0.4 mg/dL (0.55-1.3); PHOSPHOROUS 4.8 mg/dL (2.5-4.9)
[2023-07-18] MEDS: PREGABALIN 100 MG CAPSULE PO SCH (21:35)
[2023-07-19 06:47] LABS: POTASSIUM 3.6 mmol/L (3.5-5.1)
[2023-07-19 06:49] LABS: CALCIUM 8.7 mg/dL (8.5-10.1)
[2023-07-19 06:50] LABS: BLOOD UREA NITROGEN 4.7 mg/dL (7-18)
[2023-07-19 06:53] LABS: CREATININE 0.5 mg/dL (0.55-1.3)
[2023-07-19 15:25] VITALS: BMI 35.2
[2023-07-20 06:31] LABS: BASO % 0.9 % (0-2.0); EOS % 7.9 % (0-4.5); HEMATOCRIT 34.5 % (32.4-45.2); HEMOGLOBIN 11.5 GM/dL (10.7-15.3); LYMPH % 34.9 % (8-40); MCH 27.5 pg (25.7-33.7); MCHC 33.3 g/dl (32.0-36.0); MEAN CELL VOLUME 82.8 fl (80-96); MEAN PLT VOLUME 6.4 fl (7.5-11.1); MONO % 9.1 % (3.8-10.2); NEUT % 47.2 % (42.8-82.8); PLATELET COUNT 321 10^3/uL (134-434); RBC 4.16 M/mm3 (3.60-5.2); RDW 14.8 % (11.6-15.6); WHITE BLOOD COUNT 4.4 K/mm3 (4.0-10.0)
[2023-07-20 06:50] LABS: POTASSIUM 3.8 mmol/L (3.5-5.1)
[2023-07-20 06:53] LABS: CALCIUM 8.8 mg/dL (8.5-10.1)
[2023-07-20 06:54] LABS: ALBUMIN 3.4 g/dl (3.4-5.0); BLOOD UREA NITROGEN 7.2 mg/dL (7-18); MAGNESIUM 1.8 mg/dL (1.8-2.4)
[2023-07-20 06:57] LABS: CREATININE 0.6 mg/dL (0.55-1.3)
[2023-07-20 06:58] LABS: TOT PROT 6.1 g/dl (6.4-8.2)
[2023-07-20 06:59] LABS: BILIRUBIN,TOTAL 0.4 mg/dL (0.2-1)
[2023-07-20] MEDS: TAMSULOSIN HCL 0.4 MG CAP PO SCH (09:09)
[2023-07-20] MEDS: MAGNESIUM SULF 50% (8.12 MEQ/2 ML-1 GM VIAL) IVPB ONE (09:09)
[2023-07-20] MEDS: amLODIPine BESYLATE 5 MG TABLET (FP) PO ONE (09:18)
[2023-07-20] MEDS: PREGABALIN 50 MG CAPSULE PO ONE (10:28)
[2023-07-20] MEDS ORDERED: ACETAMINOPHEN 1000 MG/100 ML BAG IVPB PRN ×2 (14:36)
[2023-07-20 17:09] LABS: POTASSIUM 3.7 mmol/L (3.5-5.1)
[2023-07-20 17:11] LABS: BLOOD UREA NITROGEN 7.6 mg/dL (7-18); CALCIUM 9.1 mg/dL (8.5-10.1)
[2023-07-20 17:14] LABS: CREATININE 0.7 mg/dL (0.55-1.3)
[2023-07-20] MEDS: SODIUM CHLORIDE 1 GM TABLET PO SCH ×2 (17:32→21:42)
[2023-07-20] MEDS: levETIRAcetam 500 MG/5 ML INJECTION VIAL IVPB SCH (21:40)
[2023-07-20] MEDS: CHLORHEXIDINE GLUCONATE 4% CLEANSER FOR DECOLONIZATION TP SCH (21:40)
[2023-07-20] MEDS: PREGABALIN 75 MG CAPSULE PO SCH (21:41)
[2023-07-20] MEDS: MELATONIN 5 MG TABLETS PO PRN (21:42)
[2023-07-20] MEDS: MUPIROCIN 2% TOPICAL OINTMENT FOR DECOLONIZATION NS SCH (21:54)
[2023-07-21 06:33] LABS: BASO % 0.7 % (0-2.0); EOS % 8.6 % (0-4.5); HEMATOCRIT 32.6 % (32.4-45.2); HEMOGLOBIN 10.8 GM/dL (10.7-15.3); LYMPH % 39.3 % (8-40); MCH 27.3 pg (25.7-33.7); MCHC 33.1 g/dl (32.0-36.0); MEAN CELL VOLUME 82.6 fl (80-96); MEAN PLT VOLUME 6.5 fl (7.5-11.1); MONO % 9.9 % (3.8-10.2); NEUT % 41.5 % (42.8-82.8); PLATELET COUNT 305 10^3/uL (134-434); RBC 3.95 M/mm3 (3.60-5.2); RDW 15.1 % (11.6-15.6); WHITE BLOOD COUNT 3.5 K/mm3 (4.0-10.0)
[2023-07-21 06:53] LABS: POTASSIUM 4.1 mmol/L (3.5-5.1)
[2023-07-21 06:55] LABS: ALBUMIN 3.1 g/dl (3.4-5.0); CALCIUM 8.8 mg/dL (8.5-10.1)
[2023-07-21 06:58] LABS: CREATININE 0.4 mg/dL (0.55-1.3)
[2023-07-21 07:00] LABS: BILIRUBIN,TOTAL 0.3 mg/dL (0.2-1); TOT PROT 5.7 g/dl (6.4-8.2)
[2023-07-21] MEDS: ENOXAPARIN NA (PORCINE) 40 MG/0.4 ML DISP.SYRIN SQ SCH (09:21)
[2023-07-21] MEDS: LOSARTAN POTASSIUM 50 MG TABLET PO SCH (09:22)
[2023-07-21] MEDS: PREGABALIN 100 MG CAPSULE PO SCH (09:22)
[2023-07-21] MEDS: DULoxetine HCL 20 MG CAPSULE.DR PO SCH (09:22)
[2023-07-21] MEDS ORDERED: amLODIPine BESYLATE 5 MG TABLET (FP) PO SCH (10:00)
[2023-07-21] MEDS: PREGABALIN 75 MG CAPSULE PO SCH (21:47)
[2023-07-22] MEDS: ACETAMINOPHEN 325 MG TABLET (FP) PO PRN ×2 (06:37→17:19)
[2023-07-22 07:02] LABS: BASO % 0.6 % (0-2.0); EOS % 8.4 % (0-4.5); HEMATOCRIT 33.3 % (32.4-45.2); HEMOGLOBIN 11.1 GM/dL (10.7-15.3); LYMPH % 37.6 % (8-40); MCH 27.9 pg (25.7-33.7); MCHC 33.3 g/dl (32.0-36.0); MEAN CELL VOLUME 83.6 fl (80-96); MEAN PLT VOLUME 6.5 fl (7.5-11.1); NEUT % 45.4 % (42.8-82.8); PLATELET COUNT 316 10^3/uL (134-434); RBC 3.99 M/mm3 (3.60-5.2); RDW 14.8 % (11.6-15.6); WHITE BLOOD COUNT 3.8 K/mm3 (4.0-10.0)
[2023-07-22 07:15] LABS: POTASSIUM 4.1 mmol/L (3.5-5.1)
[2023-07-22 07:17] LABS: CALCIUM 8.9 mg/dL (8.5-10.1)
[2023-07-22 07:19] LABS: ALBUMIN 3.3 g/dl (3.4-5.0); BLOOD UREA NITROGEN 5.7 mg/dL (7-18)
[2023-07-22 07:22] LABS: CREATININE 0.5 mg/dL (0.55-1.3)
[2023-07-22 07:23] LABS: BILIRUBIN,TOTAL 0.3 mg/dL (0.2-1)
[2023-07-22] MEDS ORDERED: ACETAMINOPHEN 325 MG TABLET (FP) PO PRN (07:48)
[2023-07-22] MEDS ORDERED: MELATONIN 5 MG TABLETS PO PRN (07:48)
[2023-07-22] MEDS: TAMSULOSIN HCL 0.4 MG CAP PO SCH (08:24)
[2023-07-22] MEDS: ENOXAPARIN NA (PORCINE) 40 MG/0.4 ML DISP.SYRIN SQ SCH (09:02)
[2023-07-22] MEDS: DULoxetine HCL 20 MG CAPSULE.DR PO SCH (09:03)
[2023-07-22] MEDS: LOSARTAN POTASSIUM 50 MG TABLET PO SCH (09:03)
[2023-07-22] MEDS: levETIRAcetam 500 MG TABLET (FP) PO SCH ×2 (09:07→22:22)
[2023-07-22] MEDS ORDERED: levETIRAcetam 500 MG/5 ML INJECTION VIAL IVPB SCH (10:00)
[2023-07-22] MEDS ORDERED: CHLORHEXIDINE GLUCONATE 4% CLEANSER FOR DECOLONIZATION TP SCH ×2 (22:00)
[2023-07-22] MEDS: PREGABALIN 75 MG CAPSULE PO SCH (22:22)
[2023-07-22] MEDS: SODIUM CHLORIDE 1 GM TABLET PO SCH (22:22)
[2023-07-22] MEDS: MELATONIN 5 MG TABLETS PO PRN (22:22)
[2023-07-23 10:01] LABS: POTASSIUM 3.5 mmol/L (3.5-5.1)
[2023-07-23 10:02] LABS: CALCIUM 8.6 mg/dL (8.5-10.1)
[2023-07-23 10:06] LABS: CREATININE 0.7 mg/dL (0.55-1.3)
[2023-07-23] MEDS: PREGABALIN 100 MG CAPSULE PO SCH (10:41)
[2023-07-23] MEDS: LOSARTAN POTASSIUM 50 MG TABLET PO SCH (10:41)
[2023-07-23] MEDS: DULoxetine HCL 20 MG CAPSULE.DR PO SCH (10:41)
[2023-07-23] MEDS: TAMSULOSIN HCL 0.4 MG CAP PO SCH (10:41)
[2023-07-23] MEDS: ENOXAPARIN NA (PORCINE) 40 MG/0.4 ML DISP.SYRIN SQ SCH (10:41)
[2023-07-23 13:28] VITALS: BP 117/69; PULSE 92; RESP 18; TEMP 97.9
== END 2023-07-23 18:15 | disposition home health service (06) | DRG 641 ==
LOC: JER 01:09 → JERBED 05:52 → J4W 14:46 → JICU 07-16 19:23 → JERBED 07-21 16:39 → J2W 07-21 16:56 → J5S 07-22 10:52
PROVIDERS: ADMIT Internal Medicine; ATTEND Nurse Practitioner Acute Care
PROC: 4A10X4Z Monitoring of Central Nervous Electrical Activity, External Approach (ICD-10-PCS; principal; 2023-07-17)
DX: E87.1 Hypo-osmolality and hyponatremia (principal); N39.0 Urinary tract infection, site not specified; E87.6 Hypokalemia; I10 Essential (primary) hypertension; G62.9 Polyneuropathy, unspecified; F41.9 Anxiety disorder, unspecified; D64.9 Anemia, unspecified; R56.9 Unspecified convulsions; T50.2X5A Adverse effect of carbonic-anhydrase inhibitors, benzothiadiazides and other diuretics, initial encounter; E87.20 Acidosis, unspecified; R94.31 Abnormal electrocardiogram [ECG] [EKG]; L27.0 Generalized skin eruption due to drugs and medicaments taken internally; T36.1X5A Adverse effect of cephalosporins and other beta-lactam antibiotics, initial encounter; E66.9 Obesity, unspecified; Z68.34 Body mass index [BMI] 34.0-34.9, adult
CPT/HCPCS: 0241U-QW; 36415; 36600; 70450-TC; 70496-TC; 70498-TC; 70551-TC; 71045-TC-FY; 74177-TC; 80048; 80053; 81003; 82140; 82436; 82533; 82550; 82553; 82803; 82962; 83605; 83690; 83735; 83930; 83935; 84100; 84133; 84295; 84300; 84443; 84484; 85025; 85027; 86618; 87040; 87086; 87186; 87899; 93005; 93010; 95816; 97116-GP; 97162-GP; 99285-25; J0131

== ENCOUNTER 2023-11-30 13:57 | Emergency (ER) | payer BC, OTHER ==
[2023-11-30 14:04] VITALS: BMI 34.0
[2023-11-30 15:36] LABS: BASO % 0.8 % (0-2.0); EOS % 4.6 % (0-4.5); HEMATOCRIT 34.1 % (32.4-45.2); HEMOGLOBIN 11.3 GM/dL (10.7-15.3); LYMPH % 35.6 % (8-40); MCH 28.7 pg (25.7-33.7); MCHC 33.3 g/dl (32.0-36.0); MEAN PLT VOLUME 6.9 fl (7.5-11.1); MONO % 7.7 % (3.8-10.2); NEUT % 51.3 % (42.8-82.8); PLATELET COUNT 303 10^3/uL (134-434); RBC 3.96 M/mm3 (3.60-5.2); RDW 12.8 % (11.6-15.6); WHITE BLOOD COUNT 3.9 K/mm3 (4.0-10.0)
[2023-11-30 16:09] LABS: POTASSIUM 4.5 mmol/L (3.5-5.1)
[2023-11-30 16:11] LABS: BLOOD UREA NITROGEN 9.8 mg/dL (7-18); CALCIUM 8.8 mg/dL (8.5-10.1)
[2023-11-30 16:12] LABS: ALBUMIN 3.6 g/dl (3.4-5.0)
[2023-11-30 16:15] LABS: CREATININE 0.5 mg/dL (0.55-1.3)
[2023-11-30 16:16] LABS: BILIRUBIN,TOTAL 0.3 mg/dL (0.2-1); TOT PROT 6.4 g/dl (6.4-8.2)
[2023-11-30] MEDS ORDERED: ACETAMINOPHEN 325 MG TABLET (FP) ONE (17:14)
[2023-11-30] MEDS: ACETAMINOPHEN 325 MG TABLET (FP) PO ONE (17:21)
[2023-11-30 17:22] LABS: EPI CELLS 24 /uL (0-25.1); HYALINE CASTS 0 /uL (0-3.1); PH,URINE 7.5 (5.0-8.0); URINE APPEARANCE CLEAR; URINE BACTERIA 295 /uL (0-1359); URINE BILIRUBIN NEGATIVE (NEGATIVE); URINE COLOR YELLOW; URINE GLUCOSE (UA) NEGATIVE (NEGATIVE); URINE KETONE NEGATIVE (NEGATIVE); URINE LEUK ESTERASE 1+ (NEGATIVE); URINE NITRITE NEGATIVE (NEGATIVE); URINE PROTEIN NEGATIVE (NEGATIVE); URINE RBC 9 /uL (0-23.9); URINE WBC 10 /uL (0-25.8)
[2023-11-30 17:23] VITALS: BP 110/78; PULSE 76; RESP 19; TEMP 97.8
== END 2023-11-30 17:23 | disposition home or self-care (01) ==
LOC: JER 13:57
DX: E87.1 Hypo-osmolality and hyponatremia (principal); R35.0 Frequency of micturition
CPT/HCPCS: 36415; 80053; 81003; 82570; 83930; 83935; 84300; 85025; 93005; 93010; 99284-25

== ENCOUNTER 2024-02-20 13:52 | Emergency (ER) | payer BC ==
[2024-02-20 14:02] VITALS: BP 126/88; PULSE 75; RESP 17; TEMP 97.7; BMI 33.6
[2024-02-20] MEDS ORDERED: METHOCARBAMOL 500 MG TABLET ONE (16:27)
[2024-02-20] MEDS ORDERED: LIDOCAINE 5% TOPICAL PATCH ONE (16:28)
[2024-02-20] MEDS: LIDOCAINE 5% TOPICAL PATCH TP ONE (16:44)
[2024-02-20] MEDS: METHOCARBAMOL 500 MG TABLET PO ONE (16:44)
[2024-02-20] MEDS ORDERED: predniSONE 20 MG TABLET (UD) ONE (18:40)
[2024-02-20] MEDS ORDERED: ACETAMINOPHEN 325 MG TABLET (FP) ONE (18:40)
[2024-02-20] MEDS: ACETAMINOPHEN 325 MG TABLET (FP) PO ONE (18:43)
[2024-02-20] MEDS: predniSONE 20 MG TABLET (UD) PO ONE (18:43)
[2024-02-20] MEDS ORDERED: LIDOCAINE PATCH REMOVAL MC SCH (22:00)
== END 2024-02-20 19:25 | disposition home or self-care (01) ==
LOC: JER 13:52
DX: M54.50 Low back pain, unspecified (principal); G89.29 Other chronic pain
CPT/HCPCS: 72100-TC-FY; 99283-25

== ENCOUNTER 2024-03-17 17:12 | Inpatient (IN) | payer BC, OTHER ==
[2024-03-17] MEDS ORDERED: ONDANSETRON 4 MG/2 ML VIAL ONE (18:05)
[2024-03-17] MEDS ORDERED: FAMOTIDINE 20 MG/50 ML IVPB 20 MG/50 ML MG IVPB ONE (18:05)
[2024-03-17] MEDS ORDERED: ACETAMINOPHEN INJECTION 100 ML ONE (18:05)
[2024-03-17] MEDS: SODIUM CHLORIDE 0.9% 500 ML INFUS.BAG IV ONE (18:14)
[2024-03-17] MEDS: FAMOTIDINE 20 MG/50 ML IVPB 20 MG/50 ML MG IVPB ONE (18:14)
[2024-03-17] MEDS: ACETAMINOPHEN 1000 MG/100 ML BAG IVPB ONE (18:14)
[2024-03-17] MEDS: ONDANSETRON 4 MG/2 ML VIAL IVPUSH ONE (18:14)
[2024-03-17] MEDS ORDERED: HYDROmorphone HCl 2 MG/ML VIAL ONE ×3 (18:17→22:04)
[2024-03-17] MEDS: HYDROmorphone HCl 2 MG/ML VIAL IVPUSH ONE ×3 (18:22→22:12)
[2024-03-17 18:27] LABS: BASO % 0.4 % (0-2.0); EOS % 2.1 % (0-4.5); HEMATOCRIT 33.8 % (32.4-45.2); HEMOGLOBIN 11.5 GM/dL (10.7-15.3); LYMPH % 32.1 % (8-40); MCHC 33.9 g/dl (32.0-36.0); MEAN CELL VOLUME 85.4 fl (80-96); MEAN PLT VOLUME 6.9 fl (7.5-11.1); MONO % 6.5 % (3.8-10.2); NEUT % 58.9 % (42.8-82.8); PLATELET COUNT 286 10^3/uL (134-434); RBC 3.96 M/mm3 (3.60-5.2); RDW 13.6 % (11.6-15.6)
[2024-03-17 18:33] LABS: INR 0.97 (0.83-1.09); PROTHROMBIN TIME (PATIENT) 11.2 SEC (9.7-13.0)
[2024-03-17 18:36] LABS: ACTIVATED PTT 27.9 SECONDS (25.2-36.5)
[2024-03-17 18:47] LABS: POTASSIUM 3.5 mmol/L (3.5-5.1)
[2024-03-17 18:49] LABS: CALCIUM 8.8 mg/dL (8.5-10.1)
[2024-03-17 18:50] LABS: ALBUMIN 3.9 g/dl (3.4-5.0); BLOOD UREA NITROGEN 9.6 mg/dL (7-18); MAGNESIUM 1.8 mg/dL (1.8-2.4)
[2024-03-17 18:54] LABS: BILIRUBIN,TOTAL 0.4 mg/dL (0.2-1); CREATININE 0.7 mg/dL (0.55-1.3); TOT PROT 6.8 g/dl (6.4-8.2)
[2024-03-17] MEDS ORDERED: LIDOCAINE 4% PATCH TP ONE (20:29)
[2024-03-17] MEDS ORDERED: morphine SULFATE 4 MG/ML VIAL ONE (20:29)
[2024-03-17] MEDS: LIDOCAINE 4% PATCH TP ONE (20:34)
[2024-03-17] MEDS: morphine CARPU-JECT 4 MG/1 ML DISP.SYRIN IVPUSH ONE (20:37)
[2024-03-17 23:46] LABS: EPI CELLS 2 /uL (0-25.1); HYALINE CASTS 0 /uL (0-3.1); URINE APPEARANCE CLEAR; URINE BACTERIA >9,000 /uL (0-1359); URINE BILIRUBIN NEGATIVE (NEGATIVE); URINE COLOR YELLOW; URINE GLUCOSE (UA) NEGATIVE (NEGATIVE); URINE KETONE 1+ (NEGATIVE); URINE LEUK ESTERASE TRACE (NEGATIVE); URINE NITRITE NEGATIVE (NEGATIVE); URINE PROTEIN NEGATIVE (NEGATIVE); URINE RBC 10 /uL (0-23.9); URINE WBC 168 /uL (0-25.8)
[2024-03-17] MEDS ORDERED: CIPROFLOXACIN 400 MG/D5W 400 MG/200 ML IVPB IVPB ONE (23:51)
[2024-03-18] MEDS: METHOCARBAMOL 500 MG TABLET PO ONE (00:34)
[2024-03-18] MEDS: LIDOCAINE PATCH REMOVAL MC SCH (00:34)
[2024-03-18] MEDS ORDERED: morphine CARPU-JECT 4 MG/1 ML DISP.SYRIN IVPUSH PRN (03:08)
[2024-03-18] MEDS ORDERED: morphine SULFATE 4 MG/ML VIAL ONE (03:10)
[2024-03-18] MEDS: SODIUM CHLORIDE 1,000 ML IV SCH (03:17)
[2024-03-18] MEDS: morphine CARPU-JECT 4 MG/1 ML DISP.SYRIN IVPUSH ONE (03:17)
[2024-03-18] MEDS: ONDANSETRON 4 MG/2 ML VIAL IVPUSH PRN (03:18)
[2024-03-18] MEDS: ACETAMINOPHEN 1000 MG/100 ML BAG IVPB PRN (03:23)
[2024-03-18] MEDS ORDERED: PROCHLORPERAZINE INJECTION 10 MG/2 ML VIAL IVPB PRN (03:24)
[2024-03-18] MEDS ORDERED: BUPIVACAINE HCL/PF 0.25% (2.5MG/ML) 10 ML VIAL ONE (04:15)
[2024-03-18] MEDS ORDERED: HEPARIN NA (PORCINE) 5,000 UNITS/ML 1ML VIAL ONE (04:15)
[2024-03-18] MEDS ORDERED: INDOCYANINE GREEN 25 MG/10 ML VIAL IVPUSH ONE (04:15)
[2024-03-18] MEDS ORDERED: cefOXitin SODIUM 2 GM VIAL (RESTRICTED TO ID) IVPB ONE (04:15)
[2024-03-18] MEDS: MUPIROCIN 2% TOPICAL OINTMENT FOR DECOLONIZATION NS SCH ×2 (04:31→10:16)
[2024-03-18] MEDS ORDERED: PROPOFOL 20 ML ONE (04:37)
[2024-03-18] MEDS ORDERED: ROCURONIUM BROMIDE 50 MG/5 ML SYRINGE ONE ×2 (04:37→06:03)
[2024-03-18] MEDS: HEPARIN NA (PORCINE) 5,000 UNITS/ML 1ML VIAL SQ ONE (05:25)
[2024-03-18] MEDS: cefOXitin SODIUM 2 GM VIAL (RESTRICTED TO ID) IVPB ONE (05:28)
[2024-03-18] MEDS ORDERED: HYDROmorphone HCl 2 MG/ML VIAL ONE (05:28)
[2024-03-18] MEDS ORDERED: ONDANSETRON 4 MG/2 ML VIAL ONE (05:40)
[2024-03-18] MEDS ORDERED: DEXAMETHASONE SOD PHOSPHATE 4 MG/1 ML VIAL ONE (05:40)
[2024-03-18] MEDS ORDERED: SUGAMMADEX SODIUM 200 MG/2 ML VIAL ONE (06:54)
[2024-03-18] MEDS: morphine SULFATE 4 MG/ML VIAL IVPUSH PRN (07:54)
[2024-03-18] MEDS: morphine SULFATE 4 MG/ML VIAL IVPUSH ONE (07:58)
[2024-03-18] MEDS: PIPERACILLIN/TAZOB 3.375 GM 50 ML IVPB SCH (08:53)
[2024-03-18 09:19] LABS: EPI CELLS 9 /uL (0-25.1); HYALINE CASTS 0 /uL (0-3.1); PH,URINE 5.5 (5.0-8.0); URINE APPEARANCE CLEAR; URINE BILIRUBIN NEGATIVE (NEGATIVE); URINE COLOR YELLOW; URINE GLUCOSE (UA) NEGATIVE (NEGATIVE); URINE KETONE 2+ (NEGATIVE); URINE LEUK ESTERASE 1+ (NEGATIVE); URINE NITRITE NEGATIVE (NEGATIVE); URINE PROTEIN TRACE (NEGATIVE); URINE RBC 29 /uL (0-23.9); URINE UROBILINOGEN 0.2 mg/dL (0.2-1.0); URINE WBC 1064 /uL (0-25.8)
[2024-03-18 09:29] LABS: POTASSIUM 3.5 mmol/L (3.5-5.1)
[2024-03-18 09:31] LABS: CALCIUM 7.9 mg/dL (8.5-10.1)
[2024-03-18 09:31] LABS: INR 1.04 (0.83-1.09); PROTHROMBIN TIME (PATIENT) 11.7 SEC (9.7-13.0)
[2024-03-18 09:32] LABS: BLOOD UREA NITROGEN 6.8 mg/dL (7-18); MAGNESIUM 1.5 mg/dL (1.8-2.4)
[2024-03-18 09:33] LABS: ACTIVATED PTT 27.5 SECONDS (25.2-36.5)
[2024-03-18 09:35] LABS: CREATININE 0.6 mg/dL (0.55-1.3); PHOSPHOROUS 3.1 mg/dL (2.5-4.9)
[2024-03-18 09:36] LABS: BILIRUBIN,TOTAL 0.5 mg/dL (0.2-1); TOT PROT 5.5 g/dl (6.4-8.2)
[2024-03-18] MEDS: PANTOPRAZOLE SODIUM 40 MG VIAL IVPUSH SCH (10:02)
[2024-03-18] MEDS: levETIRAcetam 500 MG/5 ML INJECTION VIAL IVPB SCH (10:02)
[2024-03-18] MEDS: MAGNESIUM 2GM/50ML STERILE WATER IVPB IVPB ONE (12:22)
[2024-03-18] MEDS ORDERED: hydrALAZINE HCL 20 MG/ML VIAL IVPUSH PRN (14:28)
[2024-03-18] MEDS: ACETAMINOPHEN 1000 MG/100 ML BAG IVPB SCH (15:12)
[2024-03-18] MEDS: PIPERACILLIN/TAZOB 3.375 GM 3.375 GM in DEXTROSE 5%-WATER - 50 ML IVPB SCH (16:40)
[2024-03-18] MEDS: MEROPENEM-0.9% SODIUM CHLORIDE 1 GM/50 ML BAG IVPB SCH (17:49)
[2024-03-18] MEDS: FLUCONAZOLE 200 MG/NS 100 ML IVPB SCH (19:34)
[2024-03-18] MEDS: CHLORHEXIDINE GLUCONATE 4% CLEANSER FOR DECOLONIZATION TP SCH (21:33)
[2024-03-18] MEDS ORDERED: CHLORHEXIDINE GLUCONATE 4% CLEANSER FOR DECOLONIZATION TP SCH (22:00)
[2024-03-19 07:45] LABS: EOS % 0.1 % (0-4.5); HEMATOCRIT 31.7 % (32.4-45.2); HEMOGLOBIN 10.2 GM/dL (10.7-15.3); LYMPH % 7.7 % (8-40); MCH 27.9 pg (25.7-33.7); MCHC 32.3 g/dl (32.0-36.0); MEAN CELL VOLUME 86.4 fl (80-96); MEAN PLT VOLUME 7.5 fl (7.5-11.1); NEUT % 87.2 % (42.8-82.8); PLATELET COUNT 239 10^3/uL (134-434); RBC 3.67 M/mm3 (3.60-5.2); RDW 13.7 % (11.6-15.6)
[2024-03-19] MEDS: D5-NS + 20 MEQ KCL - 20 MEQ/1,000 ML INFUS.BAG IV SCH (07:52)
[2024-03-19 08:11] LABS: POTASSIUM 3.6 mmol/L (3.5-5.1)
[2024-03-19 08:13] LABS: ALBUMIN 2.6 g/dl (3.4-5.0); CALCIUM 8.1 mg/dL (8.5-10.1)
[2024-03-19 08:16] LABS: CREATININE 0.4 mg/dL (0.55-1.3)
[2024-03-19 08:17] LABS: BILIRUBIN,TOTAL 0.5 mg/dL (0.2-1); PHOSPHOROUS 3.5 mg/dL (2.5-4.9)
[2024-03-19] MEDS ORDERED: ACETAMINOPHEN 500 MG TABLET (FP) PO PRN (13:57)
[2024-03-19] MEDS ORDERED: PROCHLORPERAZINE INJECTION 10 MG/2 ML VIAL IVPB PRN (13:57)
[2024-03-19] MEDS ORDERED: oxyCODONE HCL 5 MG TABLET PO PRN (13:57)
[2024-03-19] MEDS: morphine SULFATE 4 MG/ML VIAL IVPUSH PRN (14:18)
[2024-03-19] MEDS: PANTOPRAZOLE 40 MG TABLET PO SCH (14:58)
[2024-03-19] MEDS ORDERED: AMINO ACIDS 4.25%/D5W 1,000 ML IV SCH (15:00)
[2024-03-19] MEDS: ENOXAPARIN NA (PORCINE) 40 MG/0.4 ML DISP.SYRIN SQ SCH (15:30)
[2024-03-19] MEDS: AMINO ACIDS 4.25%/D5W 1,000 ML IV SCH (15:58)
[2024-03-19] MEDS: levETIRAcetam 500 MG/5 ML INJECTION VIAL IVPB SCH (21:21)
[2024-03-19] MEDS ORDERED: LIDOCAINE PATCH REMOVAL MC SCH (22:00)
[2024-03-19] MEDS ORDERED: PANTOPRAZOLE SODIUM 40 MG VIAL IVPUSH SCH (22:00)
[2024-03-20] MEDS: oxyCODONE HCL 5 MG TABLET PO PRN ×2 (09:24→14:20)
[2024-03-20] MEDS ORDERED: ENOXAPARIN NA (PORCINE) 40 MG/0.4 ML DISP.SYRIN SQ SCH (10:00)
[2024-03-20 10:41] LABS: HEMATOCRIT 32.8 % (32.4-45.2); HEMOGLOBIN 10.7 GM/dL (10.7-15.3); MCHC 32.5 g/dl (32.0-36.0); MEAN CELL VOLUME 86.1 fl (80-96); MEAN PLT VOLUME 7.7 fl (7.5-11.1); PLATELET COUNT 247 10^3/uL (134-434); RBC 3.81 M/mm3 (3.60-5.2); WHITE BLOOD COUNT 10.3 K/mm3 (4.0-10.0)
[2024-03-20 10:48] LABS: POTASSIUM 3.4 mmol/L (3.5-5.1)
[2024-03-20 10:51] LABS: ALBUMIN 2.4 g/dl (3.4-5.0); BLOOD UREA NITROGEN 5.5 mg/dL (7-18)
[2024-03-20 10:54] LABS: CREATININE 0.4 mg/dL (0.55-1.3); PHOSPHOROUS 2.5 mg/dL (2.5-4.9)
[2024-03-20 10:55] LABS: BILIRUBIN,TOTAL 0.4 mg/dL (0.2-1); TOT PROT 4.8 g/dl (6.4-8.2)
[2024-03-20 12:36] VITALS: BMI 34.7
[2024-03-20] MEDS ORDERED: HYDROmorphone HCl 2 MG/ML VIAL IVPB PRN (13:32)
[2024-03-20] MEDS: ACETAMINOPHEN 500 MG TABLET (FP) PO SCH (16:07)
[2024-03-20] MEDS: DULoxetine HCL 30 MG CAPSULE.DR PO SCH (17:22)
[2024-03-20] MEDS: POTASSIUM CHLORIDE ORAL LIQUID 20 MEQ/15 ML PO ONE (17:37)
[2024-03-21 08:46] LABS: POTASSIUM 3.8 mmol/L (3.5-5.1)
[2024-03-21 08:50] LABS: ALBUMIN 2.3 g/dl (3.4-5.0)
[2024-03-21 08:52] LABS: MAGNESIUM 1.8 mg/dL (1.8-2.4)
[2024-03-21 08:53] LABS: CREATININE 0.4 mg/dL (0.55-1.3)
[2024-03-21 08:55] LABS: BILIRUBIN,TOTAL 0.5 mg/dL (0.2-1); TOT PROT 4.8 g/dl (6.4-8.2)
[2024-03-21 10:55] LABS: BASO % 0.3 % (0-2.0); EOS % 2.8 % (0-4.5); HEMATOCRIT 30.7 % (32.4-45.2); LYMPH % 13.8 % (8-40); MCH 28.4 pg (25.7-33.7); MCHC 32.7 g/dl (32.0-36.0); MEAN CELL VOLUME 86.8 fl (80-96); MEAN PLT VOLUME 7.6 fl (7.5-11.1); MONO % 5.3 % (3.8-10.2); NEUT % 77.8 % (42.8-82.8); PLATELET COUNT 258 10^3/uL (134-434); RBC 3.54 M/mm3 (3.60-5.2); RDW 13.7 % (11.6-15.6); WHITE BLOOD COUNT 7.3 K/mm3 (4.0-10.0)
[2024-03-21] MEDS: DULoxetine HCL 20 MG CAPSULE.DR PO ONE (15:37)
[2024-03-22 03:11] VITALS: RESP 18
[2024-03-22 07:27] VITALS: BP 133/76; PULSE 92; TEMP 97.9
[2024-03-22 07:51] LABS: BASO % 0.4 % (0-2.0); EOS % 3.7 % (0-4.5); HEMOGLOBIN 9.8 GM/dL (10.7-15.3); LYMPH % 14.3 % (8-40); MCH 28.1 pg (25.7-33.7); MCHC 32.8 g/dl (32.0-36.0); MEAN CELL VOLUME 85.7 fl (80-96); MEAN PLT VOLUME 7.4 fl (7.5-11.1); MONO % 7.5 % (3.8-10.2); NEUT % 74.1 % (42.8-82.8); PLATELET COUNT 257 10^3/uL (134-434); RDW 14.3 % (11.6-15.6); WHITE BLOOD COUNT 5.3 K/mm3 (4.0-10.0)
[2024-03-22 08:08] LABS: POTASSIUM 3.7 mmol/L (3.5-5.1)
[2024-03-22 08:13] LABS: ALBUMIN 2.3 g/dl (3.4-5.0); BLOOD UREA NITROGEN 4.9 mg/dL (7-18); CALCIUM 7.9 mg/dL (8.5-10.1); MAGNESIUM 1.6 mg/dL (1.8-2.4)
[2024-03-22 08:16] LABS: CREATININE 0.3 mg/dL (0.55-1.3)
[2024-03-22 08:18] LABS: BILIRUBIN,TOTAL 0.5 mg/dL (0.2-1); TOT PROT 4.7 g/dl (6.4-8.2)
[2024-03-22] MEDS: oxyCODONE HCL 5 MG TABLET PO PRN (09:10)
[2024-03-22] MEDS: levETIRAcetam 500 MG TABLET (FP) PO SCH (09:15)
[2024-03-22] MEDS: MAGNESIUM OXIDE 400 MG TABLET (FP) PO ONE (11:40)
== END 2024-03-22 14:52 | disposition home or self-care (01) | DRG 328 ==
LOC: JER 17:12 → JERBED 03-18 00:10 → JICU 03-18 03:09 → J8W 03-19 18:44
PROVIDERS: ADMIT Internal Medicine Pulmonary Disease; ATTEND Nurse Practitioner Family
PROC: 0JNC0ZZ Release Pelvic Region Subcutaneous Tissue and Fascia, Open Approach (ICD-10-PCS; 2024-03-18)
PROC: 0D9L0ZZ Drainage of Transverse Colon, Open Approach (ICD-10-PCS; 2024-03-18)
PROC: 0DQ90ZZ Repair Duodenum, Open Approach (ICD-10-PCS; principal; 2024-03-18 03:32)
DX: K26.5 Chronic or unspecified duodenal ulcer with perforation (principal); R56.9 Unspecified convulsions; I10 Essential (primary) hypertension; F41.8 Other specified anxiety disorders; N73.6 Female pelvic peritoneal adhesions (postinfective)
CPT/HCPCS: 0241U-QW; 36415; 70496-TC; 70498-TC; 71045-TC-FY; 74177-TC; 80048; 80053; 80177; 81003; 82436; 82533; 82962; 83036; 83605; 83690; 83735; 83930; 83935; 84100; 84133; 84300; 84443; 84484; 85025; 85027; 85610; 85730; 86850; 86900; 86901; 86922; 87040; 87070; 87075; 87205; 87338; 87481; 93005; 93010; 94010; 97116-GP; 97161-GP; 99291; J0131; J1644; Q9967

== ENCOUNTER 2024-10-16 10:14 | Observation (INO) | payer BC, OTHER ==
[2024-10-16 10:32] VITALS: BMI 31.8
[2024-10-16] MEDS ORDERED: ACETAMINOPHEN INJECTION 100 ML ONE (11:05)
[2024-10-16 11:13] LABS: ABSOLUTE IMMATURE GRANULOCYTES 0.01 x10^3/uL (0.0-0.031); BASOPHILS # 0.03 x10^3/uL (0.01-0.08); EOSINOPHIL % 4.7 % (0.7-5.8); EOSINOPHILS # 0.16 x10^3/uL (0.04-0.36); HEMATOCRIT 30.6 % (34.1-44.9); MCHC 29.4 g/dl (32.2-35.5); MEAN CELL VOLUME 78.3 fl (79.4-94.8); MEAN PLT VOLUME 10.4 fl (9.4-12.3); MONOCYTE # 0.28 x10^3/uL (0.24-0.86); MONOCYTE % 8.2 % (4.7-12.5); PLATELET COUNT 340 x10^3/uL (182-369); RDW 16.7 % (12.4-16.4)
[2024-10-16] MEDS: ACETAMINOPHEN 1000 MG/100 ML BAG IVPB ONE (11:13)
[2024-10-16 11:21] LABS: INR 0.99 (0.83-1.09); PROTHROMBIN TIME (PATIENT) 10.9 SEC (9.7-13.0)
[2024-10-16 11:23] LABS: ACTIVATED PTT 25.1 SECONDS (25.2-36.5)
[2024-10-16 11:26] LABS: ALBUMIN 3.6 g/dl (3.4-5.0)
[2024-10-16 11:27] LABS: BLOOD UREA NITROGEN 11.1 mg/dL (7-18); CALCIUM 8.9 mg/dL (8.5-10.1); MAGNESIUM 2.1 mg/dL (1.8-2.4)
[2024-10-16 11:30] LABS: CREATININE 0.5 mg/dL (0.55-1.3)
[2024-10-16 11:32] LABS: BILIRUBIN,TOTAL 0.3 mg/dL (0.2-1); TOT PROT 6.4 g/dl (6.4-8.2)
[2024-10-16 11:35] LABS: N-TERMINAL BNP 193.9 pg/ml (5-125)
[2024-10-16] MEDS ORDERED: hydrOXYzine PAMOATE 50 MG CAPSULE (FP) ONE (12:17)
[2024-10-16] MEDS: hydrOXYzine HCL 50 MG TABLET PO ONE (12:20)
[2024-10-16] MEDS ORDERED: ACETAMINOPHEN 325 MG TABLET (FP) PO PRN (14:04)
[2024-10-16] MEDS ORDERED: ZOLPIDEM TARTRATE 5 MG TABLET PO PRN (14:05)
[2024-10-16] MEDS ORDERED: LIDOCAINE 5% TOPICAL PATCH ONE (14:11)
[2024-10-16] MEDS ORDERED: MORPHINE SULFATE 2 MG/ML SYRINGE ONE (14:11)
[2024-10-16] MEDS: LIDOCAINE 5% TOPICAL PATCH TP ONE (14:30)
[2024-10-16] MEDS: morphine CARPU-JECT 2 MG/1 ML DISP.SYRIN IVPUSH ONE (14:31)
[2024-10-16] MEDS: traMADol HCL 50 MG TABLET PO PRN (18:35)
[2024-10-16] MEDS ORDERED: LIDOCAINE HCL 2% JELLY (30 ML/TUBE) TP PRN (19:11)
[2024-10-16] MEDS: DOCUSATE SODIUM 100 MG CAPSULE (FP) PO SCH (21:07)
[2024-10-16] MEDS: HEPARIN NA (PORCINE) 5,000 UNITS/ML 1ML VIAL SQ SCH (21:07)
[2024-10-16] MEDS: traZODone HCL 50 MG TABLET (FP) PO SCH (21:07)
[2024-10-16] MEDS: GABAPENTIN 300 MG CAPSULE PO SCH (21:07)
[2024-10-16] MEDS: MELATONIN 5 MG TABLETS PO PRN (21:07)
[2024-10-16] MEDS: levETIRAcetam 500 MG TABLET (FP) PO SCH (21:07)
[2024-10-17] MEDS: LIDOCAINE PATCH REMOVAL MC SCH (06:54)
[2024-10-17 06:57] LABS: HEMATOCRIT 27.9 % (34.1-44.9); HEMOGLOBIN 8.4 g/dL (11.2-15.7); MCHC 30.1 g/dl (32.2-35.5); PLATELET COUNT 300 x10^3/uL (182-369); RDW 16.4 % (12.4-16.4)
[2024-10-17 06:58] LABS: BASOPHILS # 0.01 x10^3/uL (0.01-0.08); EOSINOPHIL % 6.3 % (0.7-5.8); EOSINOPHILS # 0.18 x10^3/uL (0.04-0.36); MEAN CELL VOLUME 76.9 fl (79.4-94.8); MEAN PLT VOLUME 10.4 fl (9.4-12.3); MONOCYTE # 0.24 x10^3/uL (0.24-0.86); MONOCYTE % 8.4 % (4.7-12.5)
[2024-10-17 07:13] LABS: POTASSIUM 3.8 mmol/L (3.5-5.1)
[2024-10-17 07:15] LABS: BLOOD UREA NITROGEN 9.5 mg/dL (7-18); CALCIUM 8.7 mg/dL (8.5-10.1)
[2024-10-17 07:19] LABS: CREATININE 0.4 mg/dL (0.55-1.3)
[2024-10-17] MEDS: amLODIPine BESYLATE 5 MG TABLET (FP) PO SCH (09:27)
[2024-10-17] MEDS: DULoxetine HCL 30 MG CAPSULE.DR PO SCH (09:27)
[2024-10-17 14:53] VITALS: BP 137/78; PULSE 84; RESP 18; TEMP 98.8
== END 2024-10-17 15:44 | disposition home or self-care (01) ==
LOC: JER 10:14 → JERBED 12:56 → J4W 15:08
PROVIDERS: ADMIT Internal Medicine; ATTEND Internal Medicine
PROC: 3E033NZ Introduction of Analgesics, Hypnotics, Sedatives into Peripheral Vein, Percutaneous Approach (ICD-10-PCS; principal; 2024-10-16)
PROC: 3E023GC Introduction of Other Therapeutic Substance into Muscle, Percutaneous Approach (ICD-10-PCS; 2024-10-16)
DX: R07.9 Chest pain, unspecified (principal); I10 Essential (primary) hypertension; F41.8 Other specified anxiety disorders; M54.9 Dorsalgia, unspecified; G89.29 Other chronic pain; R56.9 Unspecified convulsions; M19.90 Unspecified osteoarthritis, unspecified site; K64.9 Unspecified hemorrhoids; Z98.84 Bariatric surgery status; Z87.891 Personal history of nicotine dependence
CPT/HCPCS: 36415; 71045-TC-FY; 80048; 80053; 83735; 83880; 84484; 85025; 85610; 85730; 93005; 93010; 93306-TC; 97116-GP; 97161-GP; 99285-25; G0378

== ENCOUNTER 2024-11-19 08:40 | Emergency (ER) | payer BC, OTHER ==
[2024-11-19 08:45] VITALS: BMI 31.8
[2024-11-19] MEDS ORDERED: ACETAMINOPHEN 325 MG TABLET (FP) ONE (10:01)
[2024-11-19] MEDS ORDERED: KETOROLAC TROMETHAMINE 15 MG/ML VIAL ONE (10:02)
[2024-11-19] MEDS: KETOROLAC TROMETHAMINE 15 MG/ML VIAL IM ONE (10:07)
[2024-11-19] MEDS: ACETAMINOPHEN 325 MG TABLET (FP) PO ONE (10:08)
[2024-11-19 11:18] VITALS: BP 147/77; PULSE 88; RESP 16; TEMP 97.8
[2024-11-19] MEDS ORDERED: LIDOCAINE 4% PATCH TP ONE (12:02)
[2024-11-19 12:06] LABS: ABSOLUTE IMMATURE GRANULOCYTES 0.03 x10^3/uL (0.0-0.031); BASOPHILS # 0.00 x10^3/uL (0.01-0.08); EOSINOPHIL % 0.0 % (0.7-5.8); EOSINOPHILS # 0.00 x10^3/uL (0.04-0.36); MCHC 31.4 g/dl (32.2-35.5); MEAN CELL VOLUME 72.9 fl (79.4-94.8); MEAN PLT VOLUME 9.4 fl (9.4-12.3); MONOCYTE # 0.47 x10^3/uL (0.24-0.86); MONOCYTE % 7.4 % (4.7-12.5); RDW 17.2 % (12.4-16.4)
[2024-11-19] MEDS: LIDOCAINE 4% PATCH TP ONE (12:08)
[2024-11-19 12:24] LABS: CO2 24.0 mmol/L (21-32); GLUCOSE,RANDOM 101.0 mg/dL (74-106)
[2024-11-19 12:28] LABS: CREATININE 0.6 mg/dL (0.55-1.3)
[2024-11-19 13:45] LABS: HCV DIAGNOSTIC IN-HOUSE W/RFLX NON-REACTIVE (NONREACTIVE)
[2024-11-19 13:47] LABS: HIV INTERPRETATION NEGATIVE (NEGATIVE)
[2024-11-19] MEDS ORDERED: LIDOCAINE PATCH REMOVAL MC ONE (22:00)
== END 2024-11-19 13:35 | disposition home or self-care (01) ==
LOC: JER 08:40
PROC: 3E0233Z Introduction of Anti-inflammatory into Muscle, Percutaneous Approach (ICD-10-PCS; principal; 2024-11-19)
DX: M54.9 Dorsalgia, unspecified (principal); G89.29 Other chronic pain; M79.672 Pain in left foot
CPT/HCPCS: 36415; 80048; 85025; 86803; 87389; 99284-25

== ENCOUNTER 2024-11-19 18:23 | Observation (INO) | payer OTHER, BC ==
[2024-11-19] MEDS: KETOROLAC TROMETHAMINE 15 MG/ML VIAL IVPUSH ONE (20:25)
[2024-11-19] MEDS: SODIUM CHLORIDE 0.9% 500 ML INFUS.BAG IV ONE (20:25)
[2024-11-19] MEDS ORDERED: LIDOCAINE 4% PATCH TP ONE (20:26)
[2024-11-19] MEDS ORDERED: KETOROLAC TROMETHAMINE 15 MG/ML VIAL ONE (20:26)
[2024-11-19] MEDS ORDERED: ACETAMINOPHEN 325 MG TABLET (FP) ONE (20:26)
[2024-11-19] MEDS: LIDOCAINE 4% PATCH TP ONE (20:37)
[2024-11-19] MEDS: KETOROLAC TROMETHAMINE 30 MG/1 ML VIAL IM ONE (20:37)
[2024-11-19] MEDS: ACETAMINOPHEN 500 MG TABLET (FP) PO ONE (20:37)
[2024-11-19] MEDS: LIDOCAINE PATCH REMOVAL MC SCH (22:27)
[2024-11-20] MEDS: ACETAMINOPHEN 1000 MG/100 ML BAG IVPB PRN (00:03)
[2024-11-20] MEDS: MELATONIN 5 MG TABLETS PO PRN (00:09)
[2024-11-20] MEDS ORDERED: KETOROLAC TROMETHAMINE 15 MG/ML VIAL IVPUSH PRN (01:04)
[2024-11-20] MEDS ORDERED: traZODone HCL 50 MG TABLET (FP) PO PRN (01:40)
[2024-11-20] MEDS: SODIUM CHLORIDE 1,000 ML IV SCH (03:16)
[2024-11-20] MEDS: PANTOPRAZOLE 40 MG TABLET PO SCH (07:02)
[2024-11-20 08:46] LABS: ABSOLUTE IMMATURE GRANULOCYTES 0.02 x10^3/uL (0.0-0.031); BASOPHILS # 0.03 x10^3/uL (0.01-0.08); EOSINOPHIL % 2.9 % (0.7-5.8); EOSINOPHILS # 0.16 x10^3/uL (0.04-0.36); MCHC 31.9 g/dl (32.2-35.5); MEAN CELL VOLUME 72.5 fl (79.4-94.8); MEAN PLT VOLUME 9.9 fl (9.4-12.3); MONOCYTE # 0.49 x10^3/uL (0.24-0.86); MONOCYTE % 8.8 % (4.7-12.5); RDW 17.1 % (12.4-16.4)
[2024-11-20] MEDS: ACETAMINOPHEN 1000 MG/100 ML BAG IVPB SCH (09:19)
[2024-11-20] MEDS: levETIRAcetam 500 MG TABLET (FP) PO SCH (09:25)
[2024-11-20] MEDS: ENOXAPARIN NA (PORCINE) 40 MG/0.4 ML DISP.SYRIN SQ SCH (09:25)
[2024-11-20] MEDS: LIDOCAINE 4% PATCH TP SCH (09:25)
[2024-11-20] MEDS: amLODIPine BESYLATE 10 MG TABLET (FP) PO SCH (09:25)
[2024-11-20 09:27] LABS: CO2 24.0 mmol/L (21-32); GLUCOSE,RANDOM 91.0 mg/dL (74-106)
[2024-11-20] MEDS: METHOCARBAMOL 500 MG TABLET PO SCH (09:29)
[2024-11-20 09:30] LABS: CREATININE 0.5 mg/dL (0.55-1.3); SGOT/AST 39.0 U/L (15-37); SGPT/ALT 30.0 U/L (13-61)
[2024-11-20 09:32] LABS: TOT PROT 6.5 g/dl (6.4-8.2)
[2024-11-20 09:33] LABS: ALK PHOS 115.0 U/L (45-117)
[2024-11-20] MEDS ORDERED: GABAPENTIN 300 MG CAPSULE PO SCH (10:00)
[2024-11-20 10:46] LABS: URINE APPEARANCE CLEAR; URINE BILIRUBIN NEGATIVE (NEGATIVE); URINE COLOR YELLOW; URINE GLUCOSE (UA) NEGATIVE (NEGATIVE); URINE KETONE NEGATIVE (NEGATIVE); URINE LEUK ESTERASE NEGATIVE (NEGATIVE); URINE NITRITE NEGATIVE (NEGATIVE); URINE PROTEIN NEGATIVE (NEGATIVE); URINE UROBILINOGEN 1.0 mg/dL (0.2-1.0)
[2024-11-20] MEDS: GABAPENTIN 400 MG CAPSULE PO SCH (14:09)
[2024-11-20] MEDS: SODIUM CHLORIDE 1 GM TABLET PO SCH ×2 (15:45→22:01)
[2024-11-20 19:29] VITALS: BMI 32.8
[2024-11-20] MEDS ORDERED: traZODone HCL 50 MG TABLET (FP) PO SCH (22:00)
[2024-11-20] MEDS: LIDOCAINE PATCH REMOVAL MC SCH (22:14)
[2024-11-21 08:29] LABS: ABSOLUTE IMMATURE GRANULOCYTES 0.01 x10^3/uL (0.0-0.031); BASOPHILS # 0.03 x10^3/uL (0.01-0.08); EOSINOPHIL % 5.8 % (0.7-5.8); EOSINOPHILS # 0.23 x10^3/uL (0.04-0.36); MCHC 31.7 g/dl (32.2-35.5); MEAN CELL VOLUME 71.5 fl (79.4-94.8); MEAN PLT VOLUME 10.0 fl (9.4-12.3); MONOCYTE # 0.38 x10^3/uL (0.24-0.86); MONOCYTE % 9.6 % (4.7-12.5); RDW 16.8 % (12.4-16.4)
[2024-11-21] MEDS: MAGNESIUM OXIDE 400 MG TABLET (FP) PO ONE (11:13)
[2024-11-21 12:46] LABS: CO2 22.0 mmol/L (21-32); GLUCOSE,RANDOM 85.0 mg/dL (74-106)
[2024-11-21 12:49] LABS: CREATININE 0.5 mg/dL (0.55-1.3)
[2024-11-21] MEDS: POTASSIUM CHLORIDE ORAL LIQUID 20 MEQ/15 ML PO ONE (14:40)
[2024-11-21] MEDS: ONDANSETRON 4 MG/2 ML VIAL IVPUSH PRN (15:30)
[2024-11-21] MEDS: MAG HYDROX/AL HYDROX/SIMETH 30 ML UNIT-DOSE CUP PO PRN (21:46)
[2024-11-22 10:22] LABS: ABSOLUTE IMMATURE GRANULOCYTES 0.02 x10^3/uL (0.0-0.031); BASOPHILS # 0.01 x10^3/uL (0.01-0.08); EOSINOPHIL % 5.6 % (0.7-5.8); EOSINOPHILS # 0.23 x10^3/uL (0.04-0.36); MCHC 31.7 g/dl (32.2-35.5); MEAN CELL VOLUME 72.2 fl (79.4-94.8); MEAN PLT VOLUME 9.6 fl (9.4-12.3); MONOCYTE # 0.44 x10^3/uL (0.24-0.86); MONOCYTE % 10.7 % (4.7-12.5); RDW 16.9 % (12.4-16.4)
[2024-11-22 11:51] LABS: CO2 25.0 mmol/L (21-32); GLUCOSE,RANDOM 83.0 mg/dL (74-106)
[2024-11-22 11:54] LABS: CREATININE 0.5 mg/dL (0.55-1.3); SGOT/AST 24.0 U/L (15-37); SGPT/ALT 26.0 U/L (13-61)
[2024-11-22 11:55] LABS: TOT PROT 6.1 g/dl (6.4-8.2)
[2024-11-22 11:57] LABS: ALK PHOS 121.0 U/L (45-117)
[2024-11-22 22:05] VITALS: RESP 18
[2024-11-22] MEDS: ACETAMINOPHEN 1000 MG/100 ML BAG IVPB ONE (22:43)
[2024-11-22] MEDS: ACETAMINOPHEN 500 MG TABLET (FP) PO ONE (23:04)
[2024-11-23 08:41] LABS: ABSOLUTE IMMATURE GRANULOCYTES 0.00 x10^3/uL (0.0-0.031); BASOPHILS # 0.01 x10^3/uL (0.01-0.08); EOSINOPHIL % 4.0 % (0.7-5.8); EOSINOPHILS # 0.13 x10^3/uL (0.04-0.36); MCHC 31.0 g/dl (32.2-35.5); MEAN CELL VOLUME 72.7 fl (79.4-94.8); MEAN PLT VOLUME 9.8 fl (9.4-12.3); MONOCYTE # 0.34 x10^3/uL (0.24-0.86); MONOCYTE % 10.6 % (4.7-12.5); RDW 17.0 % (12.4-16.4)
[2024-11-23 09:13] LABS: CO2 26.0 mmol/L (21-32)
[2024-11-23 09:14] LABS: GLUCOSE,RANDOM 87.0 mg/dL (74-106)
[2024-11-23 09:16] LABS: ALK PHOS 113.0 U/L (45-117); SGPT/ALT 24.0 U/L (13-61)
[2024-11-23 09:17] LABS: CREATININE 0.4 mg/dL (0.55-1.3); SGOT/AST 22.0 U/L (15-37)
[2024-11-23 09:18] LABS: TOT PROT 5.8 g/dl (6.4-8.2)
[2024-11-23 10:15] VITALS: BP 134/73; PULSE 70; TEMP 98
== END 2024-11-23 15:13 | disposition home health service (06) ==
LOC: JER 18:23 → JERBED 22:09 → J8W 23:26
PROVIDERS: ADMIT Internal Medicine; ATTEND Registered Nurse
PROC: 3E033NZ Introduction of Analgesics, Hypnotics, Sedatives into Peripheral Vein, Percutaneous Approach (ICD-10-PCS; principal; 2024-11-19)
PROC: 3E023GC Introduction of Other Therapeutic Substance into Muscle, Percutaneous Approach (ICD-10-PCS; 2024-11-19)
DX: G89.29 Other chronic pain (principal); E87.1 Hypo-osmolality and hyponatremia; E11.42 Type 2 diabetes mellitus with diabetic polyneuropathy; M51.369 Other intervertebral disc degeneration, lumbar region without mention of lumbar back pain or lower extremity pain; M47.816 Spondylosis without myelopathy or radiculopathy, lumbar region; M81.0 Age-related osteoporosis without current pathological fracture; I10 Essential (primary) hypertension; D50.9 Iron deficiency anemia, unspecified; G40.802 Other epilepsy, not intractable, without status epilepticus; E66.9 Obesity, unspecified; Z68.32 Body mass index [BMI] 32.0-32.9, adult; Z87.891 Personal history of nicotine dependence; Z98.84 Bariatric surgery status; Z79.1 Long term (current) use of non-steroidal anti-inflammatories (NSAID)
CPT/HCPCS: 36415; 72128-TC; 72131-TC; 76775-TC; 80048; 80053; 81003; 82570; 82607; 83036; 83735; 83930; 83935; 84100; 84300; 84439; 84443; 85025; 93005; 93010; 96361; 96365; 96366; 96372; 96374; 96375; 96376; 97116-GP; 97161-GP; 99285-25; G0378